=== PATIENT | male | born 1975 | race Two or more races ===

== ENCOUNTER 2024-08-04 07:13 | Inpatient (IN) | payer BC, SELFPAY ==
[2024-08-04] VITALS (12 sets, daily range): BP systolic 139–168; BP diastolic 83–115; PULSE 54–110; RESP 15–94; TEMP 35.9–37.2; O2SAT 94–99; BMI 36.0; BMI 34.4
--- NOTE | 2024-08-04 | XR_ITS ---
Examinations: MRI Brain without intravenous contrast. MRA brain without intravenous contrast. MRA carotids without intravenous contrast 3-D vascular reconstructions Date and time of exam: August 04, 2024 1313 hours INDICATIONS: Dizziness numbness in the legs lethargy today, history large hemorrhage in the right basal ganglia on CT brain scan February 28, 2022 Technique: Multiple axial and sagittal images of the brain have been obtained MRA brain carotid images without contrast obtained, including 3-D postprocessing, vascular maximum intensity projection images Findings: Sell[place] is not enlarged. The optic chiasm and infundibular stalk are not remarkable. Prepontine and interpeduncular cisterns are not enlarged. No localized enlargement of the medulla or tamiko. Fourth ventricle and cerebellar tonsils normal in position. Subacute hemorrhage is not seen. Fourth ventricle is midline. Mass in the cerebellopontine angle region is not evident. 7th and 8th nerve complexes exhibits symmetry. Globes are symmetrical with no retro-orbital mass. Increased white matter signal prominent, old infarct right middle cerebral artery distribution Diffusion-weighted images demonstrate multiple embolic type foci restricted diffusion, both occipital lobes, greater left occipital lobe Mass-effect upon the ventricular system is not identified. 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
--- NOTE | 2024-08-04 07:28 | EKG_ITS ---
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
--- NOTE | 2024-08-04 07:28 | PD.EDADULT ---
ED General RME/HPI General Chief complaint: Neuro Symptoms/Deficit Stated complaint: DIZZINESS, TINGLING ON LI[S, UNABLE TO SPEAK AT 06 Time Seen by Provider: 08/04/24 07:29 Arrival date/time: 08/04/24 07:13 RME / HPI RME / HPI narrative: DR. ARROYO MAIN ED EVALUATION: 48 year old male presents to the Emergency Department with complaints of dizziness and altered mental status. Per son, last well known time was this morning at 620 AM. Per son, patient was fine when he woke up at 620 AM, patient was getting ready for work, changed, and then went to the kitchen and got dizzy. When the patient started to get dizzy then patient was slower in responding. Per son, patient was dizzy a week ago after he had an ear infection and was prescribed antibiotics, does not know the name. PMHx: Hypertension. Brain hemorrhage with craniotomy in 01/2022, patient was in coma for a month and in rehab for 2 months but no residual deficits. Denies any blood thinners. Social Hx: No tobacco, alcohol, or substance use. Related Data Previous Rx's ?Medication ?Instructions ?Recorded ibuprofen 600 mg tablet 600 mg PO Q6HR PRN PAIN #40 tabs 10/01/14 lisinopril 10 mg tablet 10 mg PO QDAY #30 tabs 10/01/14 Allergies Allergy/AdvReac Type Severity Reaction Status Date / Time No Known Allergies Allergy Verified 08/04/24 07:15 Review of Systems Review of Systems Systems Reviewed: All systems reviewed, normal except as documented Past Medical History Past Medical History NEUROLOGIC: Positive Cerebrovascular Accident (HEMORRHAGIC STROKE) CARDIAC: Positive Cardiac Disorders ( clogged artey ) and Hypertension Social History SMOKING STATUS: Never smoker SUBSTANCE USE: does not use ALCOHOL: Never ED Exam Narrative Physical exam: GENERAL APPEARANCE: Alert but his gaze is fixed at a distance; he looks at me but does not answer questionnaire or follow any commands, no acute distress. HEENT: Right hemisphere old craniotomy scar. EOMI, clear conjunctiva, oropharynx clear. NECK: Supple without lymphadenopathy. No stiffness or restricted ROM. HEART: Normal rate and regular rhythm, normal S1/S1, no m/r/g LUNGS: CTAB, moving air well. No crackles or wheezes are heard. ABDOMEN: Soft, nontender, nondistended with good bowel sounds heard. BACK: No midline C/T/L spine pain or deformity, No CVAT, no obvious deformity. EXTREMITIES: Without cyanosis, clubbing or edema. MUSCULOSKELETAL: FROM of all major joints, no chest tenderness NEUROLOGICAL: Grossly nonfocal. Alert and oriented, moving all 4 extremities. CN not formally tested but appear grossly intact. Gait was normal, patient was able to get up just a little sluggish. Skin: Warm and dry without any rash. Course Quality Measures none Orders Category Date Time Status Admit to Inpatient Status Routine Admission 08/04/24 09:32 Active Patient Condition Routine Admission 08/04/24 09:31 Ordered Bedside Blood Glucose NOW Care 08/04/24 07:28 Active COVID-19 Screening Questionnaire NOW Care 08/04/24 09:01 Active Silk Trimmer NOW Care 08/04/24 07:28 Active Continuous Pulse Oximetry NOW Care 08/04/24 07:28 Completed Decision to Admit X1 Care 08/04/24 08:59 Completed EKG (ED ONLY) *Do not use* NOW Care 08/04/24 07:28 Completed Head of Bed Elevation NOW Care 08/04/24 09:43 Active In and Out Catheter NEEDED Care 08/04/24 07:28 Active Insert IV NOW Care 08/04/24 07:28 Active Miscellaneous Nursing Order NOW Care 08/04/24 09:46 Active NIH Stroke Scale now Care 08/04/24 07:28 Active NPO NOW Care 08/04/24 07:28 Active Neuro Check Q15MIN Care 08/04/24 07:28 Active Neuro Check Q4H Care 08/04/24 09:31 Active Notify provider NEEDED Care 08/04/24 09:31 Active Nurse Swallow Screen X1 Care 08/04/24 09:39 Active Nurse Swallow Screen x1 Care 08/04/24 07:28 Active Seizure precautions NEEDED Care 08/04/24 09:32 Active Sequential Compression Device QSHIFT Care 08/04/24 09:31 Active Consult to Neurology / Tele-Neurology Routine Cons 08/04/24 07:28 Active Consult to Neurology / Tele-Neurology Stat Cons 08/04/24 09:[address] angio stroke protocol Stat Exams 08/04/24 07:[address] stroke protocol Stat Exams 08/04/24 07:28 Completed EKG (ED Only) Stat Exams 08/04/24 07:28 Draft Basic Metabolic Panel AM DRAW Lab 08/05/24 05:00 Ordered Basic Metabolic Panel AM DRAW Lab 08/06/24 05:00 Ordered Basic Metabolic Panel AM DRAW Lab 08/07/24 05:00 Ordered CBC AM DRAW Lab 08/05/24 05:00 Ordered CBC AM DRAW Lab 08/06/24 05:00 Ordered CBC AM DRAW Lab 08/07/24 05:00 Ordered CBC Stat Lab 08/04/24 07:30 Completed Comprehensive Metabolic Panel Stat Lab 08/04/24 07:30 Completed Drug Screen,Urine Stat Lab 08/04/24 08:01 Completed Lipid Panel AM DRAW Lab 08/05/24 05:00 Ordered Magnesium AM DRAW Lab 08/05/24 05:00 Ordered Magnesium AM DRAW Lab 08/06/24 05:00 Ordered Magnesium AM DRAW Lab 08/07/24 05:00 Ordered Magnesium Stat Lab 08/04/24 07:30 Completed Partial Thromboplastin Time Stat Lab 08/04/24 07:30 Completed Phosphorous AM DRAW Lab 08/05/24 05:00 Ordered Phosphorous AM DRAW Lab 08/06/24 05:00 Ordered Phosphorous AM DRAW Lab 08/07/24 05:00 Ordered Prothrombin Time with INR Stat Lab 08/04/24 07:30 Completed Thyroid Stimulating Hormone AM DRAW Lab 08/05/24 05:00 Ordered Troponin I Stat Lab 08/04/24 07:30 Completed Troponin I Stat Lab 08/04/24 10:10 Completed Acetaminophen Tab [Tylenol Tab] Med 08/04/24 09:31 Active 650 mg PO Q6H PRN Ondansetron Inj [Zofran Inj] Med 08/04/24 07:28 Active 4 mg IVP Q4HR PRN Ringers Lactated 1000 ml [Lactated Ringers] 1,000 ml Med 08/04/24 09:40 Active IV 80 mls/hr levETIRAcetam INJ [Keppra Inj] Med 08/04/24 07:55 Discontinued 1,500 mg IVP X1 ONE Code Status Routine Oth 08/04/24 09:31 Ordered EEG Awake and Drowsy Routine RT 08/04/24 09:41 Ordered Oxygen Delivery NOW RT 08/04/24 07:28 Active Vital Signs Vital signs: Vital Signs Temperature 98.1 F 08/04/24 07:14 Pulse Rate 61 08/04/24 07:14 Respiratory Rate 16 08/04/24 07:14 Blood Pressure 142/103 H 08/04/24 07:14 Pulse Oximetry (%) 99 08/04/24 07:14 Oxygen Delivery Method Room Air 08/04/24 07:14 Discharge Plan Plan Patient Disposition: Admit Acute Care w/in Hospital Problem List Clinical Impression: Seizure, Cerebrovascular accident, Anxiety MDM Narrative [facility] hospital course: I, Lita Shahid am scribing for and in the presence of Dr. Arroyo. Clinical Information Provided by patient and family (son) Medical Records Reviewed [facility] Reviewed last visit dated 02/28/22, patient admitted for the following: Basal ganglia hemorrhage. At that time, the patient was transferred to [facility]. Meds/Rx Considered, not Ordered None Labs/Rad/Tests considered, not Ordered None Chronic Illness/Social Conditions Add or document further as needed: Hypertension. Brain hemorrhage with craniotomy in 2022, patient was in coma for a month and in rehab for 2 months but no residual deficits. Denies any blood thinners. EKG Interpretation EKG #1: Date/time of EK08/04/24 0756 hours EKG interpretation: sinus bradycardia, rate 59, normal intervals, normal axis, no acute ST-T wave changes. Lab Interpretation Labs: interpreted by me Imaging Radiology reports / interpretation(s): Procedure(s): CT stroke protocol Accession Number(s): [id number] cc: Ryan Arroyo MD; Shay Pettit MD~ Examination: CT brain head without contrast. 2-D sagittal coronal reconstructions Date and time of exam:August 04, 2024 0731 hours Comparison February 28, 2022 INDICATIONS: Stroke alert, onset focal neurologic deficit, unable to speak today, large hemorrhage in the right basal ganglia on CT brain scan February 28, 2022 CTDI: vol (mGy):54.9 DLP: (mGycm):1009 Technique: Multiple CT axial sections of the brain have been obtained, 5 mm slice thickness. Contrast has not been administered. 2-D sagittal, coronal reconstructions have been obtained Low dose protocols were performed. One or more of the following dose reduction techniques were used; automated exposure control, adjustment of the mA and/or KV according to patient size, use of iterative reconstruction technique. Findings: Large right craniotomy defect with ipsilateral ventricular dilatation and encephalomalacia in the right middle artery distribution No interval acute hemorrhage. No interval mass effect Fourth ventricle midline No cranial vault fracture IMPRESSION: Chronic changes as above No interval acute hemorrhage or mass effect Dictated By: Shay Pettit MD Procedure(s): CT angio stroke protocol Accession Number(s): [id number] cc: Ryan Arroyo MD; Shay Pettit MD~ Examination: CTA carotids with intravenous contrast CTA brain, head with intravenous contrast. 2-D sagittal, coronal reconstructions. 3-D reconstructions. Exam date and time: August 04, 2024, 0739 hours INDICATIONS: Stroke alert, unable to speak this week CTDI: vol (mGy) 47 DLP: (mGycm) 511.8 Technique: Multiple CTA axial brain, head carotid images post intravenous contrast injection 75 cc, Isovue-[id number]. 2-D sagittal, coronal reconstructions. 3-D reconstructions, 3-D post processing including vascular maximum intensity projection images. Low dose protocols were performed. One or more of the following dose reduction techniques were used; automated exposure control, adjustment of the mA and/or KV according to patient size, use of iterative reconstruction technique. Findings: No significant common carotid carotid bifurcation or internal carotid artery stenoses Dominant right vertebral artery with no critical vertebral artery stenoses 90% plus stenosis distal M1 segment right middle cerebral artery Middle cerebral artery trifurcation vessels do fill as well as anterior cerebral arteries Diffuse irregularity of the posterior cerebral artery branches IMPRESSION: No significant neck arterial stenoses 90% stenosis distal M1 segment right middle cerebral artery Dictated By: Shay Pettit MD Medication Administration(s) Medication Administration History Acetaminophen (Acetaminophen 325 Mg Tablet) 650 mg PO Q6H PRN PRN Reason: PAIN OR FEVER > 100.4 Stop: 09/03/24 09:30 Lactated Ringer's (Lactated Ringers) 1,000 mls @ 80 mls/hr IV .[id number] [facility] Stop: 09/03/24 09:39 Last Admin: 08/04/24 10:36 Dose: 80 mls/hr Documented By: BAILEY Ondansetron HCl (Ondansetron Inj 2 Mg/Ml Inj 2 Ml) 4 mg IVP Q4HR PRN PRN Reason: NAUSEA OR VOMITING Stop: 09/03/24 07:27 Discontinued Medications Levetiracetam (Levetiracetam Inj 100 Mg/Ml Vial 5ml) 1,500 mg IVP X1 ONE Stop: 08/04/24 07:56 Last Admin: 08/04/24 08:08 Dose: 1,500 mg Documented By: MARLINE Consultations/Discussions re: Management Consult #1: Date/time: 08/04/24 8:48 am Physician, specialty, service, details: Discussed test HPI, PMHx, lab, radiology results and/or management with resident working with the hospitalist. Will admit for further evaluation and management. Accepts patient for admission. Diagnosis Differential diagnosis: CVA, TIA, seizure, anxiety Most likely dx, and/or detailed dx discussion: Seizure CVA Anxiety Dispositon Disposition: Admit
[2024-08-04 07:53] LABS: Basophils % (Auto) 0 % (0-2.5); Eosinophils # (Auto) 0.2 Thou/mm3 (0.0-0.5); Eosinophils % (Auto) 2 % (0-10); Hematocrit 42.5 % (41.0-53.0); Hemoglobin 15.5 g/dL (13.5-16.0); Immature Granulocytes % (Auto) 1 % (0-0); Immature Granulocytes Auto 0.04 Thou/mm3 (0.00-0.00); Lymphocytes # (Auto) 1.7 Thou/mm3 (1.0-4.8); Lymphocytes % (Auto) 19 % (10-50); Mean Corpuscular HGB Conc 36.5 g/dl (31.0-37.0); Mean Corpuscular Hemoglobin 30.3 pg (25.0-35.0); Mean Corpuscular Volume 83 fL (80-100); Monocytes # (Auto) 0.6 Thou/mm3 (0.0-0.8); Monocytes % (Auto) 7 % (0-12); Neutrophils # (Auto) 6.3 Thou/mm3 (1.8-7.7); Neutrophils % (Auto) 71 % (37-80); Nucleated Red Blood Cell % 0 /100 WBC (0); Platelet Count 196 Thou/mm3 (140-440); RDW Standard Deviation 39.1 fL (35.1-43.9); Red Blood Count 5.11 Miln/mm3 (4.50-5.90); White Blood Count 8.8 Thou/mm3 (3.8-10.6)
--- NOTE | 2024-08-04 07:57 | ESCONSULT_ITS ---
Tele Neuro Consultation Consultation Date 08/04/24 Consultation Narrative [facility] Tele[facility] Patient Name:???Adal Cesar Date of :???1975 Date of Service:???08/04/2024 07:20:46 Diagnosis:?G40.89 - Other seizures Impression: ?Patient is a 48-year-old male with a past medical history of right basal ganglia hemorrhage, craniotomy, hypertension is currently presenting for altered mental status. ? ?Patient presents with an episode of acute confusion, not following commands. Currently he seems to be improving. 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 ?As per brother had prior episodes like this where he would suddenly feel dizzy and then he would recover after little bit of time. Currently he appears more confused. ? ?On exam patient is awake, alert, attends to both sides of the room. He can answer questions and follow commands reasonably well. He does not remember the month or his age. He can tell me his name. Mentions that he is globally weak. He is moving all his extremities with equal strength. Extraocular motion is intact. Language function is seemingly intact he can name common objects. ? ?Head CT shows considerable right temporal lobe encephalomalacia. ?Overall suspicious for a focal seizure involving the right temporal lobe. ?- Prior history of intracranial hemorrhage precludes IV thrombolytic treatment. ?- load with 60 mg/kg up to 4 g of IV Keppra. ?- Obtain EEG. ?- If patient does not return to baseline, consider a broad encephalopathy workup, obtain MRI brain with and without contrast. Our recommendations are outlined below. Recommendations: ? Stroke/Telemetry Floor ? Neuro Checks (Q2) ? Bedside Swallow Eval ? DVT Prophylaxis ? IV Fluids, Normal Saline ? Head of Bed 30 Degrees ? Euglycemia and Avoid Hyperthermia (PRN Acetaminophen) ?- Prior history of intracranial hemorrhage precludes IV thrombolytic treatment. ?- load with 60 mg/kg up to 4 g of IV Keppra. ?- Obtain EEG. ?- If patient does not return to baseline, consider a broad encephalopathy workup, obtain MRI brain with and without contrast. Advanced Imaging:Advanced imaging has been ordered. Results pending. Metrics: Last Known Well: 08/04/2024 06:20:00 Dispatch Time: 08/04/2024 07:20:46 Arrival Time: 08/04/2024 07:20:52 Initial Response Time: 08/04/2024 07:24:37Symptoms: Confused. Initial patient interaction: 08/04/2024 07:30:00 NIHSS Assessment Completed: 08/04/2024 07:41:48Patient is not a candidate for T hrombolytic. Thrombolytic Medical Decision: 08/04/2024 07:44:17Patient was not deemed candidate for Thrombolytic because of following reasons: History of previous intracranial hemorrhage, intracranial neoplasm . other diagnosis suspected R sided craniotomy changes, R BG encephalomalacia involving the left temporal lobe suspicious for a focal seizure. CT Head: I personally reviewed all the CT images that were available to me and it showed: R sided craniotomy changes, R BG encephalomalacia involving the left temporal lobe Primary Provider Notified of Diagnostic Impression and Management Plan on: 08/04/2024 07:54:10 History of Present Illness:Patient is a 48 year old Male. Patient was brought by private transportation with symptoms of Confused. Patient is a 48-year-old male with a past medical history of right basal ganglia hemorrhage, craniotomy, hypertension is currently presenting for altered mental status. Most of the history is obtained from brother who is at bedside. Mentions that patient woke up normally at around 6:20 AM this morning. He was at his baseline. He was talking. They were getting ready for work. And at that time he noticed that the patient was feeling dizzy. He was holding onto something with his right arm and standing. Later he went and laid down and took some rest. Brother mentions that this has happened in the past where he suddenly feels dizzy and he has to sit down. However he recovers quickly. Today he seemed to be not coming back to his baseline. He appeared confused. Patient himself cannot remember his age. He can tell me his name. He does not remember the month. Mentions that his whole body feels weak. ? Past Medical History: ?Hypertension ?There is no history of Diabetes Mellitus Other PMH:? Hemorrhagic stroke in 2022 Medications: No Anticoagulant use? No Antiplatelet use Reviewed EMR for current medications Allergies:? Description:?As per chart Social History: Smoking: No Family History: There is no family history of premature cerebrovascular disease pertinent to this consultation ROS : 14 Points Review of Systems was performed and was negative except mentioned in HPI. Past Surgical History: There Is No Surgical History Contributory To Today?s Visit ? Examination: BP(175/100),?Pulse(59),?Blood Glucose(102) 1A: Level of Consciousness - Alert; keenly responsive?+ 0 1B: Ask Month and Age - Could Not Answer Either Question Correctly?+ 2 1C: Blink Eyes & Squeeze Hands - Performs Both Tasks?+ 0 2: Test Horizontal Extraocular Movements - Normal?+ 0 3: Test Visual Mike - No Visual Loss?+ 0 4: Test Facial Palsy (Use Grimace if Obtunded) - Minor paralysis (flat nasolabial fold, smile asymmetry)?+ 1 5A: Test Left Arm Motor Drift - No Drift for 10 Seconds?+ 0 5B: Test Right Arm Motor Drift - No Drift for 10 Seconds?+ 0 6A: Test Left Leg Motor Drift - No Drift for 5 Seconds?+ 0 6B: Test Right Leg Motor Drift - No Drift for 5 Seconds?+ 0 7: Test Limb Ataxia (FNF/Heel-Adrian) - No Ataxia?+ 0 8: Test Sensation - Normal; No sensory loss?+ 0 9: Test Language/Aphasia - Normal; No aphasia?+ 0 10: Test Dysarthria - Normal?+ 0 11: Test Extinction/Inattention - No abnormality?+ 0 NIHSS Score:?3 Pre-Morbid Modified Anthony Scale:1 Points = No significant disability despite symptoms; able to carry out all usual duties and activities Spoke with :?ED Provider This consult was conducted in real time using interactive audio and video technology. Patient was informed of the technology being used for this visit and agreed to proceed. Patient located in hospital and provider located at home/office setting. Patient is being evaluated for possible acute neurologic impairment and high probability of imminent or life-threatening deterioration. I spent total of 45 minutes providing care to this patient, including time for face to face visit via telemedicine, review of medical records, imaging studies and discussion of findings with providers, the patient and/or family. Dr Yossi Shah [facility] For Inpatient follow-up with [facility] physician please call [facility] at . As we are not an outpatient service for any post hospital discharge needs please contact the hospital for assistance. If you have any questions for the [facility] physicians or need to reconsult for clinical or diagnostic changes please contact us via [facility] at . ?
[2024-08-04] MEDS: levETIRAcetam INJ 100 MG/ML VIAL 5ML 1500 MG IVP (08:08)
[2024-08-04 08:09] LABS: Alanine Aminotransferase 31 U/L (10-49); Albumin, Serum 4.5 gm/dL (3.5-5.0); Alkaline Phosphatase 62 U/L (46-116); Anion Gap 9 (7-16); Aspartate Amino Transferase 18 U/L (0-34); BUN/Creatinine Ratio 12 Ratio (12-20); Bilirubin,Total 0.7 mg/dL (0.3-1.2); Blood Urea Nitrogen 13 mg/dL (9-23); Calcium 8.7 mg/dL (8.3-10.6); Calcium (Corrected) 8.7 mg/dL (8.5-10.1); Carbon Dioxide 27.7 mMol/L (20.0-31.0); Chloride 106 mMol/L (98-107); Creatinine (Component) 1.1 mg/dL (0.6-1.3); Estimated Creatinine Clearance 95.6 mL/min (>60); Globulin 2.3 gm/dL (2.3-3.5); Glucose 103 mg/dL (74-106); Osmolality,Calculated 285 (275-295); Potassium 3.8 mMol/L (3.4-5.1); Sodium 143 mMol/L (136-145); Total Protein 6.8 gm/dL (5.7-8.2); eGFR > 60 See Note
[2024-08-04 08:55] LABS: Amphetamine/Methamp Scrn,U Negative (Negative); Barbiturate Screen,Urine Negative (Negative); Benzodiazepines Screen,Urine Negative (Negative); Benzoylecgonine Screen, Ur Negative (Negative); Fentanyl Screen,Urine Negative (Negative); Opiate Screen,Urine Negative (Negative); THC Screen,Urine Negative (Negative)
[2024-08-04 09:32] LABS: Partial Thromboplastin Time 29.8 Seconds (22.0-36.0); Prothrombin Time 10.8 Seconds (9.0-12.2)
--- NOTE | 2024-08-04 09:52 | ESHP_ITS ---
<Statement entered by Yajaira Sue MD - 08/11/24 13:34> I reviewed above note and agree with findings and plans. I have also personally examined the patient with medicine team and went over assessment and plan with medical team including legal internship and resident physician. 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 Son at bedside to help provide additional information-and states that when getting ready for work this morning, patient started to feel dizzy with associated numbness on his lips and slower to respond. No associated weakness, numbness, facial droop, or slurred speech. Of note, patient experienced an episode of dizziness a week ago but apparently resolved. Upon evaluation at bedside, patient is alert and oriented to self and place only, not to birthdate or her year. Appears to have a flat affect and responds in one-word sentences to son that son attributes to patient feeling dizzy. Upon arrival to ED, stroke alert was called and head CT showed considerable right temporal lobe encephalomalacia and primary suspicion for focal seizure of the right temporal lobe. Given history of intracranial bleed, no IV thrombolytic treatment given and instead given loading dose of Keppra. Teleneuro recommended to admit for further workup/management of possible seizures and encephalopathy. Otherwise, in ED vital signs stable though slightly bradycardic at 55 bpm, CBC unremarkable, CMP unremarkable. Troponin noted to be elevated at 0.15 that downtrended to 0.147. U tox negative. CT as mentioned above, CTA head/neck showed 90% stenosis of distal M1 segment of the right MCA. EKG showed sinus bradycardia with heart rate 59 bpm but otherwise no ST changes, T wave abnormalities noted. Given loading dose keppra in ED. 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 and hypertension Medications: pending med rec SHx: previously used to binge drink but stopped in 2021 after stroke, denies smoking or illicit drug use PSHx: [facility] many years ago with no stents placed Review of Systems Review of Systems Systems Reviewed: All systems reviewed, normal except as documented Exam Vital Signs Temp Pulse Resp BP Pulse Ox O2 Del Method 97.9 F 56 L 15 143/86 H 96 Room Air 08/04/24 09:11 08/04/24 09:11 08/04/24 09:11 08/04/24 09:11 08/04/24 09:11 08/04/24 09:11 Narrative Exam General: alert, oriented to self and place but not year or birthdate, flat affect and speaks in 1 word sentences HEENT: NC/AT, mucous membranes moist, bilateral sclera anicteric Cardiovascular: regular rate and rhythm, S1/S2 present, no murmurs appreciated Pulmonary: clear to auscultation bilaterally, no rales/rhonchi/wheezes Abdominal: soft, non-tender, non-distended, no rebound/guarding, normal bowel sounds present Musculoskeletal: normal ROM, no peripheral edema Skin: warm and dry, intact, no rashes Neuro: no focal deficits, strength equal and intact in upper and lower extremities bilaterally Results: Labs 08/04/24 07:30 08/04/24 07:30 Labs: Short CBC 08/04/24 Range/Units 07:30 WBC 8.8 (3.8-10.6) Thou/mm3 Hgb 15.5 (13.5-16.0) g/dL Hct 42.5 (41.0-53.0) % Plt Count 196 (140-440) Thou/mm3 BMP 08/04/24 07:30 Sodium 143 Potassium 3.8 Chloride 106 Carbon Dioxide 27.7 BUN 13 Creatinine 1.1 Glucose 103 Calcium 8.7 Cardiac Enzymes 08/04/24 Range/Units 07:30 Troponin I 0.150 H* (0.0-0.045) ng/mL Liver Function 08/04/24 Range/Units 07:30 Total Bilirubin 0.7 (0.3-1.2) mg/dL AST 18 (0-34) U/L ALT 31 (10-49) U/L Alkaline Phosphatase 62 (46-116) U/L Albumin 4.5 (3.5-5.0) gm/dL Quality Measures Quality Measures none Medications Home Medications and Allergies Allergies Allergy/AdvReac Type Severity Reaction Status Date / Time No Known Allergies Allergy Verified 08/04/24 07:15 Visit Medications Acetaminophen (Acetaminophen 325 Mg Tablet) 650 mg PO Q6H PRN PRN Reason: PAIN OR FEVER > 100.4 Stop: 07/05/25 09:30 Lactated Ringer's (Lactated Ringers) 1,000 mls @ 80 mls/hr IV .[id number] [place] Stop: 09/03/24 09:39 Ondansetron HCl (Ondansetron Inj 2 Mg/Ml Inj 2 Ml) 4 mg IVP Q4HR PRN PRN Reason: NAUSEA OR VOMITING Stop: 09/03/24 07:27 Discontinued Medications Levetiracetam (Levetiracetam Inj 100 Mg/Ml Vial 5ml) 1,500 mg IVP X1 ONE Stop: 08/04/24 07:56 Last Admin: 08/04/24 08:08 Dose: 1,500 mg Assessment & Plan Plan Adal Cesar is a 48-year-old male with a past medical history of 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 #Acute encephalopathy secondary to possible seizure #? New onset seizure #History of right ganglia hemorrhagic stroke status post craniotomy 2021 #Dizziness Presents with dizziness and numbness of lips but without any other focal neurological deficits. Son denies any tonic-clonic movements, lip biting, urinary incontinence, or postictal confusion. U tox negative, CHEM panel unremarkable (Na, osm, BUN, Cr), LFTs unremarkable (low suspicion of hepatic encephalopathy), denies any symptoms that may point towards infectious etiology. Given CT head findings, most likely new onset seizure of right temporal lobe given previous history of hemorrhagic stroke in 2021. ? In-house neurology consulted, appreciate recommendations ? Received loading dose Keppra in ED ? Nurse swallow screen ? Seizure precautions, head of bed elevation > 30 degrees, neuro checks q4h ? Follow-up MRI and echo ? Zofran for nausea ? Follow-up lipid panel and TSH ? Follow-up EEG #History of hypertension ? Pending med rec Hospital management: Disposition: pending MRI and further neuro recommendations Fluids: LR at 80 cc/hr Diet: NPO, pending swallow screen Lines: PIV DVT prophylaxis: SCDs given history of hemorrhagic stroke CODE STATUS: full code ----- Plan discussed with attending physician Dr. Linette Moore MD PGY-1 Internal Medicine
[2024-08-04] MEDS: RINGERS LACTATED 1000 ML 1,000 ML 80 ML IV (10:36)
[2024-08-04 10:41] LABS: Troponin I 0.147 ng/mL (0.0-0.045)
[2024-08-04] MEDS: ONDANSETRON INJ 2 MG/ML INJ 2 ML 4 MG IVP (12:50)
--- NOTE | 2024-08-04 13:00 | PC.NURSE ---
ORTHOSTATIC VS PERFORMED AT THIS TIME; ABLE TO TAKE SUPINE & SITTING ORTHOSTATICS. PT UNABLE TO STAND AT THIS TIME. UNABLE TO PERFORM ORTHOSTATIC STANDING AT THIS TIME.
--- NOTE | 2024-08-04 15:14 | PC.NURSE ---
REPORT GIVEN TO AFSHAN MUNOZ. EEG CURRENTLY BEING PERFORMED. WILL TRANSPORT PATIENT TO ADMITTING UPON COMPLETION OF EEG.
--- NOTE | 2024-08-04 15:59 | XR_ITS ---
Examination: CT brain head without contrast. 2-D sagittal coronal reconstructions Date and time of exam:August 04, 2024 at 0409 hours Comparison August 04, 2024 0731 hours , Multiple acute embolic type infarcts in the occipital lobes on brain MRI August 04, 2024 INDICATIONS: Change in mental status today CTDI: vol (mGy):57.5 DLP: (mGycm):1228 Technique: Multiple CT axial sections of the brain have been obtained, 5 mm slice thickness. Contrast has not been administered. 2-D sagittal, coronal reconstructions have been obtained Low dose protocols were performed. One or more of the following dose reduction techniques were used; automated exposure control, adjustment of the mA and/or KV according to patient size, use of iterative reconstruction technique. Findings: Large right craniotomy defect with encephalomalacia in the temporal frontal and right parietal lobe Ipsilateral ventricular dilatation No interval acute hemorrhage or mass effect Please see the brain MRI report August 04, 2024 IMPRESSION: No interval acute hemorrhage or mass effect Consider repeating the brain MRI, stroke protocol to assess for progression of acute infarcts
--- NOTE | 2024-08-04 16:11 | EVENTNT_ITS ---
<Statement entered by Yajaira Sue MD - 08/11/24 13:36> I reviewed above note and agree with findings and plans. I have also personally examined the patient with medicine team and went over assessment and plan with medical team including accounting intern and resident physician. Documentation for date of: 08/04/24 Event Note Event Note: Rapid response called at approximately 4 PM for change in mentation. Per report, patient had become less responsive on the way up from the ED to telemetry. In ED, patient was noted to have a glazed look but was answering questions appropriately with one-word answers and following commands. Upon evaluation during rapid, patient was responding to voice and following commands but less responsive compared to prior. Stroke alert was called and patient will go to state CT. Spoke to in-house neurology, recommended no benzos at this time as patient admitted for possible new onset seizure and follow-up CT results and no DAPT given history of intracranial bleed. ----- Plan discussed with attending physician Dr. Linette Moore MD PGY-1 Internal Medicine
--- NOTE | 2024-08-04 17:15 | ECHO_ITS ---
Transthoracic Echo Report Ht (in): 67 Wt (lb): 220 Exam Location: Echo Lab Status: Inpatient Educational Diagnostician: Mignon Melendez Indications: Procedure Performed: BP: 142 / 112 HR: 68 Technical Quality: Technically difficult study MEASUREMENTS (Male / Female) Normal Values 2D ECHO LV Diastolic Diameter PLAX 3.9 cm 4.2 - 5.9 / 3.9 - 5.3 cm LV Systolic Diameter PLAX 2.5 cm IVS Diastolic Thickness 1.3 cm 0.6 - 1.0 / 0.6 - 0.9 cm LVPW Diastolic Thickness 1.1 cm 0.6 - 1.0 / 0.6 - 0.9 cm LV Relative Wall Thickness 0.6 LVOT Diameter 1.6 cm Aortic Root Diameter 2.7 cm LA Systolic Diameter LX 2.9 cm 3.0 - 4.0 / 2.7 - 3.8 cm LA Volume Index 19.9 cm?/m? 16 - 28 cm?/m? M-MODE Aortic Root Diameter MM 2.4 cm LA Systolic Diameter MM 3.4 cm LA Ao Ratio MM 1.4 AV Cusp Separation MM 1.8 cm DOPPLER AV Peak Velocity 156.0 cm/s AV Peak Gradient 9.7 mmHg AV Mean Gradient 5.0 mmHg AV Velocity Time Integral 34.3 cm LVOT Peak Velocity 139.0 cm/s LVOT Peak Gradient 7.7 mmHg LVOT Velocity Time Integral 32.5 cm LVOT Cardiac Index 2010.5 cm?/min?m? AV Area Cont Eq vti 1.9 cm? AV Area Cont Eq pk 1.8 cm? MV Area PHT 3.1 cm? Mitral E Point Velocity 65.0 cm/s Mitral A Point Velocity 90.2 cm/s Mitral E to A Ratio 0.7 LV E' Lateral Velocity 10.6 cm/s Mitral E to LV E' Lateral Ratio 6.1 LV E' Septal Velocity 7.6 cm/s Mitral E to LV E' Septal Ratio 8.5 PV Peak Velocity 147.0 cm/s PV Peak Gradient 8.6 mmHg FINDINGS Left Ventricle Normal left ventricular size and systolic function with no obvious regional wall motion abnormalities. Mild LVH. The left ventricular ejection fraction is normal, estimated at 60-65%. There is grade I diastolic dysfunction of the left ventricle (impaired relaxation pattern). Right Ventricle The right ventricle is normal in size and systolic function. Left Atrium The left atrium is normal by two-dimensional, color flow and Doppler imaging with no structural abnormalities, no thrombus formation present. Right Atrium The right atrium is normal by two-dimensional imaging, color flow and Doppler imaging with no structural abnormalities, no thrombus formation present. Atrial Septum The interatrial septum appears normal with no evidence of a shunt. Aorta The aorta is normal by two-dimensional, color flow and Doppler interrogation. Mitral Valve The mitral valve is normal by two-dimensional, color flow and Doppler interrogation. There is no significant mitral valve regurgitation, stenosis or prolapse. Aortic Valve The aortic valve is trileaflet and normal by two-dimensional, color flow and Doppler interrogation. There is no significant aortic valve regurgitation. Tricuspid Valve The tricuspid valve is normal by two-dimensional, color flow and Doppler interrogation. There is no significant tricuspid valve regurgitation. Pulmonic Valve The pulmonic valve is not well visualized. There is no significant pulmonic valve regurgitation. Vessels The pulmonary artery appears normal. The inferior vena cava pulmonary and hepatic veins appear normal. Pericardium The pericardium is normal by two-dimensional imaging. There is no significant pericardial effusion. CONCLUSIONS Indication: TIA/CVA-rule out embolic source with bubble study Negative bubble study for any PFO or ASD. Consider SANAZ if high index of clinical suspicion. Normal LV size and function. Mild to moderate LVH. Estimated EF 60-65%. Grade I diastolic dysfunction. Normal RV size and function. Normal RVSP. Trace TR and MR. No pericardial effusion. Lloyd Deal (Electronically Signed) Final Date: 05 August 2024 18:00
[2024-08-04] MEDS: LABETALOL INJ 5 MG/ML VIAL 20 ML 10 MG IVP (19:51)
[2024-08-04] MEDS: ASPIRIN 300 MG SUPP PR (21:54)
--- NOTE | 2024-08-04 23:12 | PD.NEUROCONS ---
History of Present Illness Data of Consult Requesting Physician: Yajaira Sue MD Primary Care Provider: Anatoly Mcdonald Consult Narrative cc:: cc: Yajaira Sue MD Meds Home Medications and Allergies Home Medications ?Medication ?Instructions ?Recorded ?Confirmed ?Type hydralazine 50 mg tablet mg 08/04/24 History losartan 50 mg tablet mg 08/04/24 History meclizine 25 mg tablet mg 08/04/24 History Allergies Allergy/AdvReac Type Severity Reaction Status Date / Time No Known Allergies Allergy Verified 08/04/24 07:15 Exam - Neurology Vital Signs Temp Pulse Resp BP Pulse Ox O2 Del Method 97.7 F 110 H 18 168/88 H 98 Room Air 08/04/24 20:00 08/04/24 20:00 08/04/24 20:00 08/04/24 20:00 08/04/24 20:00 08/04/24 20:00 Results Labs 08/04/24 07:30 08/04/24 07:30 Labs: Short CBC 08/04/24 Range/Units 07:30 WBC 8.8 (3.8-10.6) Thou/mm3 Hgb 15.5 (13.5-16.0) g/dL Hct 42.5 (41.0-53.0) % Plt Count 196 (140-440) Thou/mm3 BMP 08/04/24 07:30 Sodium 143 Potassium 3.8 Chloride 106 Carbon Dioxide 27.7 BUN 13 Creatinine 1.1 Glucose 103 Calcium 8.7 Cardiac Enzymes 08/04/24 08/04/24 Range/Units 07:30 10:10 Troponin I 0.150 H* 0.147 H* (0.0-0.045) ng/mL Liver Function 08/04/24 Range/Units 07:30 Total Bilirubin 0.7 (0.3-1.2) mg/dL AST 18 (0-34) U/L ALT 31 (10-49) U/L Alkaline Phosphatase 62 (46-116) U/L Albumin 4.5 (3.5-5.0) gm/dL
[2024-08-05] VITALS: BP 163/81; PULSE 82; PULSE 85; RESP 23; TEMP 36.8; O2SAT 95
--- NOTE | 2024-08-05 | XR_ITS ---
Examinations: MRI Brain without intravenous contrast. MRA brain without intravenous contrast. 3-D vascular reconstructions Date and time of exam: August 05, 2024 1026 hours INDICATIONS: New onset weakness altered mental status today, stroke alert Technique: Multiple axial and sagittal images of the brain have been obtained MRA brain carotid images without contrast obtained, including 3-D postprocessing, vascular maximum intensity projection images Findings: [place] is not enlarged. The optic chiasm and infundibular stalk are not remarkable. Prepontine and interpeduncular cisterns are not enlarged. No localized enlargement of the medulla or tamiko. Fourth ventricle and cerebellar tonsils normal in position. Subacute hemorrhage is not seen. Fourth ventricle is midline. Mass in the cerebellopontine angle region is not evident. 7th and 8th nerve complexes exhibits symmetry. Globes are symmetrical with no retro-orbital mass. Increased white matter signal prominent Diffusion-weighted images demonstrate multiple foci restricted diffusion in the brainstem, occipital lobes and bilateral basal ganglia Mass-effect upon the ventricular system is not identified. MRA brain images do not demonstrate basilar artery posterior cerebral artery filling No definite occlusions of M1 segments middle cerebral arteries middle cerebral artery trifurcation vessels or anterior cerebral arteries Impression: Multiple embolic type acute infarcts in the brainstem, pontine level, occipital lobes, and bilateral basal ganglia MRA images do not demonstrate basilar artery or posterior cerebral artery filling
[2024-08-05] MEDS: RINGERS LACTATED 1000 ML 1,000 ML 80 ML IV (01:56)
[2024-08-05 04:00] VITALS: BP 153/95; PULSE 80; PULSE 85; RESP 20; TEMP 36.8; O2SAT 96
[2024-08-05 05:40] VITALS: BMI 34.4
[2024-08-05 05:41] LABS: Basophils % (Auto) 0 % (0-2.5); Eosinophils # (Auto) 0.1 Thou/mm3 (0.0-0.5); Eosinophils % (Auto) 1 % (0-10); Hematocrit 42.9 % (41.0-53.0); Hemoglobin 14.8 g/dL (13.5-16.0); Immature Granulocytes % (Auto) 0 % (0-0); Immature Granulocytes Auto 0.02 Thou/mm3 (0.00-0.00); Lymphocytes # (Auto) 1.3 Thou/mm3 (1.0-4.8); Lymphocytes % (Auto) 13 % (10-50); Mean Corpuscular HGB Conc 34.5 g/dl (31.0-37.0); Mean Corpuscular Hemoglobin 30.2 pg (25.0-35.0); Mean Corpuscular Volume 88 fL (80-100); Monocytes # (Auto) 0.7 Thou/mm3 (0.0-0.8); Monocytes % (Auto) 7 % (0-12); Neutrophils # (Auto) 7.4 Thou/mm3 (1.8-7.7); Neutrophils % (Auto) 78 % (37-80); Nucleated Red Blood Cell % 0 /100 WBC (0); Platelet Count 196 Thou/mm3 (140-440); RDW Standard Deviation 41.1 fL (35.1-43.9); White Blood Count 9.5 Thou/mm3 (3.8-10.6)
[2024-08-05 06:06] LABS: Anion Gap 10 (7-16); BUN/Creatinine Ratio 12 Ratio (12-20); Blood Urea Nitrogen 13 mg/dL (9-23); Calcium 8.9 mg/dL (8.3-10.6); Carbon Dioxide 28.9 mMol/L (20.0-31.0); Cardiac Risk Estimate 5.4 RATIO (4.0-6.7); Chloride 106 mMol/L (98-107); Cholesterol 227 mg/dL (132-200); Creatinine (Component) 1.1 mg/dL (0.6-1.3); Estimated Creatinine Clearance 93.4 mL/min (>60); Glucose 100 mg/dL (74-106); HDL Cholesterol 42 mg/dL (40-60); LDL Cholesterol,Calculated 155 mg/dL (0-130); Magnesium 1.8 mg/dL (1.6-2.6); Osmolality,Calculated 288 (275-295); Phosphorous 2.5 mg/dL (2.4-5.1); Potassium 3.8 mMol/L (3.4-5.1); Sodium 145 mMol/L (136-145); Thyroid Stimulating Hormone 0.95 uIU/mL (0.55-4.78); Triglycerides 150 mg/dL (30-150); eGFR > 60 See Note
--- NOTE | 2024-08-05 07:01 | PD.NEUROPROG ---
Documentation for date of: 08/04/24 Subjective Subjective Interval history: Patient was seen in telemetry today with his family at the bedside. His mental status is not back to baseline according to the family. No witnessed tonic-clonic convulsions reported. He is very slow in responding. Exam - Neurology Vital Signs Temp Pulse Resp BP Pulse Ox O2 Del Method 98.2 F 85 20 153/95 H 96 Room Air 08/05/24 04:00 08/05/24 04:00 08/05/24 04:00 08/05/24 04:00 08/05/24 04:00 08/05/24 04:00 Narrative Exam GENERAL APPEARANCE: Well-developed, obese built male in no acute distress. HEENT: Normocephalic, atraumatic, extraocular movements intact. Pupils: Equal reacting to light and accommodation NECK: Supple, no JVD or bruits. CARDIOVASULAR: Heart: S1, S2 heard, regular without S3-S4 or murmur no rubs or gallops. LUNGS/CHEST: Clear to auscultation bilaterally. No rails, rhonchi, or wheezing. Normal inspection. ABDOMEN: Soft, nontender, with normal bowel sounds. No pulsatile masses. No rebound, rigidity, or guarding. Normal inspection and palpation. EXTREMITIES: Normal inspection and palpation. No edema, clubbing or cyanosis. SKIN: Warm and dry without rashes. Normal inspection. MUSCULOSKELETAL: No cervical, thoracic, lumbar or midline bony tenderness. Normal inspection. NEURO: Alert, awake and oriented x3. Cranial nerves: II through XII grossly intact. Speech and language: Dysarthric/hypophonic. Motor system: Tone and bulk: Normal: Strength: 5 out of 5 in all 4 extremities; No pronator drift noted. Deep tendon reflexes: 2+ bilaterally symmetrical. Plantar reflex: Downgoing bilaterally. Sensory system: Intact to all modalities of sensation bilaterally. Coordination: Intact to [id number] and hgro-huqm-ghse test bilaterally. No ataxia, no dysmetria, or dysdiadochokinesia noted. No intention tremors noted. Gait: Not tested. No signs of meningeal irritation noted. PSYCHIATRIC: Flat affect Objective Labs 08/05/24 04:56 08/05/24 04:56 Labs: Laboratory Results - last 24 hr 08/04/24 08/04/24 08/04/24 07:30 08:01 10:10 WBC 8.8 RBC 5.11 Hgb 15.5 Hct 42.5 MCV 83 MCH 30.3 MCHC 36.5 RDW Std Deviation 39.1 Plt Count 196 Neut % (Auto) 71 Lymph % (Auto) 19 [place] % (Auto) 7 Eos % (Auto) 2 Baso % (Auto) 0 Neut # (Auto) 6.3 Lymph # (Auto) 1.7 [place] # (Auto) 0.6 Eos # (Auto) 0.2 Baso # (Auto) 0.0 Immature Gran # (Auto) 0.04 H Absolute Nucleated RBC 0.00 Immature Gran % 1 H Nucleated RBC % 0 PT 10.8 INR 1.0 APTT 29.8 Sodium 143 Potassium 3.8 Chloride 106 Carbon Dioxide 27.7 Anion Gap 9 BUN 13 Creatinine 1.1 Estim Creat Clear Calc 95.6 eGFR > 60 BUN/Creatinine Ratio 12 Glucose 103 Calculated Osmolality 285 Calcium 8.7 Corrected Calcium 8.7 Phosphorus Magnesium 2.0 Total Bilirubin 0.7 AST 18 ALT 31 Alkaline Phosphatase 62 Troponin I 0.150 H* 0.147 H* Total Protein 6.8 Albumin 4.5 Globulin 2.3 Albumin/Globulin Ratio 2.0 Triglycerides Cholesterol LDL Cholesterol, Calc HDL Cholesterol Cholesterol/HDL Ratio TSH Urine Opiates Screen Negative Urine Fentanyl Screen Negative Ur Barbiturates Screen Negative U Amphetamin/Meth Scrn Negative U Benzodiazepines Scrn Negative U Cocaine Metab Screen Negative U Marijuana (THC) Screen Negative 08/05/24 04:56 WBC 9.5 RBC 4.90 Hgb 14.8 Hct 42.9 MCV 88 MCH 30.2 MCHC 34.5 RDW Std Deviation 41.1 Plt Count 196 Neut % (Auto) 78 Lymph % (Auto) 13 [place] % (Auto) 7 Eos % (Auto) 1 Baso % (Auto) 0 Neut # (Auto) 7.4 Lymph # (Auto) 1.3 [place] # (Auto) 0.7 Eos # (Auto) 0.1 Baso # (Auto) 0.0 Immature Gran # (Auto) 0.02 H Absolute Nucleated RBC 0.00 Immature Gran % 0 Nucleated RBC % 0 PT INR APTT Sodium 145 Potassium 3.8 Chloride 106 Carbon Dioxide 28.9 Anion Gap 10 BUN 13 Creatinine 1.1 Estim Creat Clear Calc 93.4 eGFR > 60 BUN/Creatinine Ratio 12 Glucose 100 Calculated Osmolality 288 Calcium 8.9 Corrected Calcium Phosphorus 2.5 Magnesium 1.8 Total Bilirubin AST ALT Alkaline Phosphatase Troponin I Total Protein Albumin Globulin Albumin/Globulin Ratio Triglycerides 150 Cholesterol 227 H LDL Cholesterol, Calc 155 H HDL Cholesterol 42 Cholesterol/HDL Ratio 5.4 TSH 0.95 Urine Opiates Screen Urine Fentanyl Screen Ur Barbiturates Screen U Amphetamin/Meth Scrn U Benzodiazepines Scrn U Cocaine Metab Screen U Marijuana (THC) Screen Assessment & Plan Assessment and plan (1) Acute CVA (cerebrovascular accident): Status: Acute Assessment and plan: Even though he had intracerebral hemorrhage in 2021 affecting the right cerebral hemisphere, he did not have any residual neurological deficit. As the MRI brain showed acute infarction involving the left occipital area, will start him on aspirin for secondary prevention with close monitoring for any bleeding. Continue with aggressive blood pressure management along with statin. Will get physical therapy evaluation (2) Hypertension: Status: Acute Assessment and plan: Needs aggressive blood pressure management (3) Seizure: Status: Acute Assessment and plan: No witnessed focal or generalized tonic-clonic convulsions. Will continue with Keppra 500 mg twice a day as the EEG showed right cerebral hemispherical spikes involving frontal central and temporal areas consistent with his previous intracerebral hemorrhage. No driving advised.
[2024-08-05 07:21] VITALS: BP 182/104; PULSE 82
[2024-08-05] MEDS: LABETALOL INJ 5 MG/ML VIAL 20 ML 10 MG IVP (07:21)
[2024-08-05 08:00] VITALS: BP 182/104; PULSE 71; PULSE 85; RESP 18; TEMP 36.2; O2SAT 93
--- NOTE | 2024-08-05 08:20 | CHAP ---
Responded to Rapid Response (08:20). Patient had already been taken from room. Apparently no family there.
--- NOTE | 2024-08-05 08:21 | PRELIM_ITS ---
CT scan of the head without intravenous contrast (axial sections with sagittal and coronal reformats). August 04, 2024 at 1609 hours Clinical History: Change mental status. Comparison: No prior study is available for comparison. Findings: Right craniotomy. The mastoid air cells and visualized paranasal sinuses are clear. Cystic encephalomalacia in the right temporal lobe and right frontal lobe. Encephalomalacia in the left parietal lobe. Chronic bilateral basal ganglia infarctions. Ex vacuo dilatation of the right lateral ventricle. No intracranial hemorrhage. No midline shift. Basal cisterns are preserved. Prominent atherosclerotic calcification is noted. Impression: No intracranial hemorrhage or mass effect. Chronic findings as above. Report Electronically Signed By: Chandana Jorge 08/05/2024 8:20:17 AM [EST]
[2024-08-05 08:25] VITALS: BP 148/99; BP 159/99; BP 182/104; PULSE 71; PULSE 78; PULSE 80; RESP 18; RESP 20; RESP 23; TEMP 36.2; TEMP 36.4; O2SAT 93; O2SAT 94
--- NOTE | 2024-08-05 08:34 | XR_ITS ---
Examination: CT brain head without contrast. 2-D sagittal coronal reconstructions Date and time of exam:August 05, 2024 0836 hours Comparison August 04, 2024 INDICATIONS: Stroke alert, onset focal neurologic deficit CTDI: vol (mGy):57.2 DLP: (mGycm):1176 Technique: Multiple CT axial sections of the brain have been obtained, 5 mm slice thickness. Contrast has not been administered. 2-D sagittal, coronal reconstructions have been obtained Low dose protocols were performed. One or more of the following dose reduction techniques were used; automated exposure control, adjustment of the mA and/or KV according to patient size, use of iterative reconstruction technique. Findings: Again noted large right craniotomy defect with encephalomalacia in the right temporal lobe right frontal and parietal lobes with ipsilateral ventricular dilatation No interval hemorrhage or mass effect Encephalomalacia also in the left parietal lobe IMPRESSION: No interval hemorrhage mass effect or midline shift
--- NOTE | 2024-08-05 08:41 | XR_ITS ---
Examination: CTA carotids with intravenous contrast CTA brain, head with intravenous contrast. 2-D sagittal, coronal reconstructions. 3-D reconstructions. Date and time: August 05, 2024, 0844 hours INDICATIONS: Stroke alert, new onset weakness right side altered mental status CTDI: vol (mGy) 61.5 DLP: (mGycm) 529 Technique: Multiple CTA axial brain, head carotid images post intravenous contrast injection 75 cc, [id number]. 2-D sagittal, coronal reconstructions. 3-D reconstructions, 3-D post processing including vascular maximum intensity projection images. Low dose protocols were performed. One or more of the following dose reduction techniques were used; automated exposure control, adjustment of the mA and/or KV according to patient size, use of iterative reconstruction technique. Findings: No significant common carotid carotid bifurcation or internal carotid artery stenoses Codominant vertebral arteries no critical stenoses Intracranial vertebral arteries do fill Proximal basilar artery is opacified, distal basilar artery is opacified On the CTA images there is opacification of the entire basilar artery There is very poor filling of the posterior cerebral arteries, multiple high-grade stenoses bilaterally Middle cerebral and anterior cerebral arteries do not demonstrate large vessel occlusions IMPRESSION: No significant neck arterial stenoses Intracranial vertebral arteries do fill, on the axial sections proximal basilar artery is opacified, a segment of the mid basilar artery does not opacify, the distal basilar artery is opacified, however on the 3-D reconstructions the basilar artery does opacify, clinical correlation advised Severe stenotic lesions in both posterior cerebral arteries
--- NOTE | 2024-08-05 08:51 | PD.TNEURO ---
Tele Neuro Consultation Consultation Date 08/05/24 Most Recent Vital Signs Last Vital Signs Temp 97.2 F 08/05/24 08:00 Pulse 71 08/05/24 08:00 Resp 18 08/05/24 08:00 BP 182/104 H 08/05/24 08:00 Pulse Ox 93 L 08/05/24 08:00 O2 Del Method Room Air 08/05/24 08:00 Laboratory-Coagulation Panel PT 10.8 Seconds (9.0-12.2) 08/04/24 07:30 INR 1.0 (0.9-1.3) 08/04/24 07:30 APTT 29.8 Seconds (22.0-36.0) 08/04/24 07:30 Consultation Narrative [facility] Tele[facility]urology Consult [facility] Patient Name:???Adal Cesar Date of :???1975 Identification Number:??? Date of Service:???08/05/2024 08:23:43 Diagnosis:?G93.49 - Encephalopathy Multifactorial Impression: ?This patient is a 48-year-old male with a past medical history of hypertension, hyperlipidemia, intracerebral hemorrhage, currently hospitalized with bilateral occipital lobe infarcts presenting for evaluation of right-sided weakness. On my examination the patient appears near obtunded and unresponsive. Symptoms possibly related to seizure given his abnormal EEG versus basilar artery occlusion. Repeat CT angiogram pending to rule this out. Recommend loading with 2500 mg IV Keppra and increasing maintenance Keppra to 7 and 50 mg twice daily. If CT angiogram does not produce actionable findings and the patient remains obtunded would recommend obtaining stat EEG to rule out subclinical seizure. Given the bilateral occipital lobe involvement ME ES is within the differential, though I would not expect the degree of diffusion restriction noted. Our recommendations are outlined below. Recommendations: ? Stroke/Telemetry Floor ? Neuro Checks (Q2) ? Bedside Swallow Eval ? DVT Prophylaxis ? IV Fluids, Normal Saline ? Head of Bed 30 Degrees ? Euglycemia and Avoid Hyperthermia (PRN Acetaminophen) ? Initiate or continue Aspirin 81 MG daily ? Antihypertensives PRN if Blood pressure is greater than 220/120 or there is a concern for End organ damage/contraindications for permissive HTN. If blood pressure is greater than 220/120 give labetalol PO or IV or Vasotec IV with a goal of 15% reduction in BP during the first 24 hours. Sign Out: ? Discussed with Primary Attending Advanced Imaging: Advanced imaging has been ordered. Results pending. Metrics: Last Known Well: 08/05/2024 08:00:00 Dispatch Time: 08/05/2024 08:23:43 Initial Response Time: 08/05/2024 08:25:49Symptoms: right sided weakness. Initial patient interaction: 08/05/2024 08:38:09 NIHSS Assessment Completed: 08/05/2024 08:41:26Patient is not a candidate for Thrombolytic. Thrombolytic Medical Decision: 08/05/2024 08:41:27Patient was not deemed candidate for Thrombolytic because of following reasons: History of previous intracranial hemorrhage, intracranial neoplasm . Significant head trauma or stroke in previous [address] Head: I personally reviewed all the CT images that were available to me and it showed: multiple chronic infarcts in the right hemisphere and subacute left occipital CVA. Primary Provider Notified of Diagnostic Impression and Management Plan on: 08/05/2024 08:45:00 Spoke With: HIM attending at bedside Able to Reach 08/05/2024 08:45:00 History of Present Illness:Patient is a 48 year old Male. Inpatient stroke alert was called for symptoms of right sided weakness. This patient is a 48-year-old male with a past medical history of hypertension, hyperlipidemia, intracerebral hemorrhage, currently hospitalized for acute ischemic stroke presenting for evaluation of new onset right-sided weakness. The patient's initial symptoms were dizziness, and visual disturbance found to have small bilateral occipital lobe infarcts on MRI as well as 90% stenosis of the right M1 branch. At approximately 8 AM this morning the patient became less responsive and had diminished movement of the right side for which he stroke alert was activated. The patient is unresponsive and unable to participate in HPI. Past Medical History: ?Hypertension ?Hyperlipidemia ?Stroke Other PMH:? ICH unable to obtain due to:?? Patient Cannot Speak Medications: No Anticoagulant use? Antiplatelet use:?Yes?asa Reviewed EMR for current medications Allergies:? Reviewed Allergies Unable To Obtain Due To:?Patient Cannot Speak Social History: Unable To Obtain Due To Patient Status :?Patient Cannot Speak Family History: Family History Cannot Be Obtained Because:Patient Cannot Speak ROS :?ROS Cannot Be Obtained Because:? Patient Cannot Speak Past Surgical History: Past Surgical History Cannot Be Obtained Because: Patient Cannot Speak There Is No Surgical History Contributory To Today?s Visit Examination: BP(159/99),?Pulse(71), 1A: Level of Consciousness - Movements to Pain?+ 2 1B: Ask Month and Age - Could Not Answer Either Question Correctly?+ 2 1C: Blink Eyes & Squeeze Hands - Performs 0 Tasks?+ 2 2: Test Horizontal Extraocular Movements - Normal?+ 0 3: Test Visual Mike - Patient is Bilaterally Blind?+ 3 4: Test Facial Palsy (Use Grimace if Obtunded) - Partial paralysis (lower face)?+ 2 5A: Test Left Arm Motor Drift - No Effort Against [place]?+ 3 5B: Test Right Arm Motor Drift - No Effort Against [place]?+ 3 6A: Test Left Leg Motor Drift - No Effort Against [place]?+ 3 6B: Test Right Leg Motor Drift - No Effort Against [place]?+ 3 7: Test Limb Ataxia (FNF/Heel-Adrian) - Does Not Understand?+ 0 8: Test Sensation - Normal; No sensory loss?+ 0 9: Test Language/Aphasia - Mute/Global Aphasia: No Usable Speech/Auditory Comprehension?+ 3 10: Test Dysarthria - Mute/Anarthric?+ 2 11: Test Extinction/Inattention - No abnormality?+ 0 NIHSS Score:?28 NIHSS Free Text :?The patient lies with his eyes open, intermittently blinking but unresponsive. Does not blink to threat bilaterally. Eyes are midline. Pre-Morbid Modified [place] Scale:0 Points = No symptoms at all Spoke with :?HIM attending at bedside This consult was conducted in real time using interactive audio and video technology. Patient was informed of the technology being used for this visit and agreed to proceed. Patient located in hospital and provider located at home/office setting. Patient is being evaluated for possible acute neurologic impairment and high probability of imminent or life-threatening deterioration. I spent total of 35 minutes providing care to this patient, including time for face to face visit via telemedicine, review of medical records, imaging studies and discussion of findings with providers, the patient and/or family. Dr Gurdeep Hui [facility] For Inpatient follow-up with [facility] physician please call [facility] at . As we are not an outpatient service for any post hospital discharge needs please contact the hospital for assistance. If you have any questions for the [facility] physicians or need to reconsult for clinical or diagnostic changes please contact us via [facility] at .
--- NOTE | 2024-08-05 09:10 | PC.CC ---
Addendum entered by Juan Holguin RN 08/05/24 12:32: 1232 Completed TBA, faxed back to [facility]. Addendum entered by Juan Holguin RN 08/05/24 12:30: 1148 sent paperwork to [facility] through [id number]. [facility] spoke to Tiffanie and she confirmed that she received the paperwork. 1124 checked with hospital unit clerk MRI CD was also sent with the pt 1050 informed hospital unit clerk once MRI CD is done, place it in the chart. 1040 charge nurse informed me that pt is just getting the MRI done and he already spoke to X-ray tech to make CD for MRI. Addendum entered by Juan Holguin RN 08/05/24 12:26: 1035 Made 2 transfer packets. 1 for [facility] with 1 CD inside and 1 for [facility]. Completed all signatures. Gave transfer packets to hospital unit clerk. Addendum entered by Juan Holguin RN 08/05/24 12:26: 1028 received call from Tg at [facility], she wants me to work on TBA. Fax number provided. Original Note: 1023 called charge nurse and informed about ETA. Charge nurse informed me that pt is off unit for MRI. 1023 received call from [facility] that ETA is 11 min. 1016 received call from Tg at [facility], she wants to speak with Dr. Moore to give him recommendation that Dr. Sharif gave her. Conference call connected with Dr. Moore. 1014 received call from Tg at [facility] that she did not receive the clinicals. I informed her that it was sent but fax is getting failed and I got 2 failure notices. She gave me a alternate fax number and I resent the clinicals. 1012 Called [facility], spoke to Sridhar and setup the transport. Sridhar stated he will call me back with ETA. 1011 received call from Mabel at [facility]. I informed her pt is accepted at [facility]. 1015 called ICU charge nurse and informed about accepting info and number for report. 1010 Got accepting information from Tg at [facility]. Pt is accepted at [facility] for inpatient to ED transfer. Accepted by Dr. Sharif. Report can be called at [phone]. 1001 received call from Tg at [facility] that she wants to connect Dr. Sharif neuro-surgery on the line to do peer to peer with Dr. Moore. Conference call connected. 0949 called [facility], spoke to Tg and initiated the transfer. She wants to speak with Dr. Moore, conference call connected. 0940 clinicals faxed to [facility], pushed images. 0933 Received call from Mabel at [facility], gave verbal clinicals. Total call time 12 min. 926 called Carmen with [place] [employer] to notify about transfer, left VM. 09 clinicals sent to [facility]. Images pushed. 918 called [facility], spoke to Klaudia and initiated the stat transfer request. She stated the nurse will give me a call back for clinicals. Klaudia also stated to reach out to insurance to notify about the transfer and get the name and contact number for the person and call her back. Klaudia is aware that it is a stat transfer. [address] 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
[2024-08-05] MEDS: ASPIRIN 300 MG SUPP PR (09:28)
[2024-08-05] MEDS: levETIRAcetam INJ 100 MG/ML VIAL 5ML 2500 MG IVP (09:28)
--- NOTE | 2024-08-05 10:12 | PD.RESCONSUL ---
HPI Data of Consult Requesting Physician: Yajaira Sue MD Admitting Provider: Yajaira Sue MD Attending Provider: Yajaira Sue MD Primary Care Provider: Anatoly Mcdonald Consult Narrative History of present illness: RE: Adal Cesar DATE OF CONSULTATION: 08/05/2024 REASON FOR CONSULTATION: ICU level close monitoring before transfer for neuro intervention to a tertiary care center. 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 Son at bedside to help provide additional information-and states that when getting ready for work this morning, patient started to feel dizzy with associated numbness on his lips and slower to respond. In the ED, stroke alert was called and tele neuro consulted. Head CT showed considerable right temporal lobe encephalomalacia, multiple chronic infarcts in the right hemisphere and subacute left occipital CVA. Given history of intracranial bleed, no IV thrombolytic treatment given and instead given loading dose of Keppra. Teleneuro recommended to admit for further workup/management of possible seizures and encephalopathy. CTA head/neck showed 90% stenosis of distal M1 segment of the right MCA. EKG showed sinus bradycardia with heart rate 59 bpm but otherwise no ST changes, T wave abnormalities noted. Per Tele neuro documentation: Thrombolytic Medical Decision: 08/05/2024 08:41:27Patient was not deemed candidate for Thrombolytic because of history of previous intracranial hemorrhage in previous 3 months NIHSS Score:?28 ; Pre-Morbid Modified [place] Scale:0 Points i.e. No symptoms at all ESTABLISHED DIAGNOSES: 1. MRI brain showed acute infarction involving the left occipital area - Started on aspirin for secondary prevention with close monitoring. 2. Seizure disorder - continue Keppra 500 mg twice a day as the 3. EEG showed right cerebral hemispherical spikes involving frontal central and temporal areas consistent with his previous intracerebral hemorrhage. PHYSICAL EXAMINATION: GENERAL APPEARANCE: Well-developed, obese built male in no acute distress. HEENT: Normocephalic, atraumatic, extraocular movements intact. Pupils: Equal reacting to light and accommodation NECK: Supple, no JVD or bruits. CARDIOVASULAR: Heart: S1, S2 heard, regular without S3-S4 or murmur no rubs or gallops. LUNGS/CHEST: Clear to auscultation bilaterally. No rails, rhonchi, or wheezing. Normal inspection. ABDOMEN: Soft, nontender, with normal bowel sounds. No pulsatile masses. No rebound, rigidity, or guarding. Normal inspection and palpation. EXTREMITIES: Normal inspection and palpation. No edema, clubbing or cyanosis. SKIN: Warm and dry without rashes. Normal inspection. MUSCULOSKELETAL: No cervical, thoracic, lumbar or midline bony tenderness. Normal inspection. NEURO: Alert, awake and oriented x3. Cranial nerves: II through XII grossly intact. Speech and language: Dysarthric/hypophonic. Motor system: Tone and bulk: Normal: Strength: 5 out of 5 in all 4 extremities; No pronator drift noted. Deep tendon reflexes: 2+ bilaterally symmetrical. Plantar reflex: Downgoing bilaterally. Sensory system: Intact to all modalities of sensation bilaterally. Coordination: Intact to [id number] and [id number] test bilaterally. No ataxia, no dysmetria, or dysdiadochokinesia noted. No intention tremors noted. Gait: Not tested. No signs of meningeal irritation noted. PSYCHIATRIC: Flat affect RECOMMENDATION: Patient is being airlifted to a tertiary care center with neurosurgery intervention service. Thrombo-embolectomy to be attempted. Plan of care discussed with canopy stringer Dr Ramirez - Rob Todd M.D. PGY2 Disclaimer: Minor errors in engineering production worker may be present as this note was dictated using voice recognition software. cc:: cc: Yajaira Sue MD Exam Vital Signs Temp Pulse Resp BP Pulse Ox O2 Del Method 97.2 F 71 18 182/104 H 93 L Room Air 08/05/24 08:00 08/05/24 08:00 08/05/24 08:00 08/05/24 08:00 08/05/24 08:00 08/05/24 08:00 Results Labs 08/05/24 04:56 08/05/24 04:56 Labs: Short CBC 08/05/24 Range/Units 04:56 WBC 9.5 (3.8-10.6) Thou/mm3 Hgb 14.8 (13.5-16.0) g/dL Hct 42.9 (41.0-53.0) % Plt Count 196 (140-440) Thou/mm3 BMP 08/05/24 04:56 Sodium 145 Potassium 3.8 Chloride 106 Carbon Dioxide 28.9 BUN 13 Creatinine 1.1 Glucose 100 Calcium 8.9 Cardiac Enzymes 08/04/24 Range/Units 10:10 Troponin I 0.147 H* (0.0-0.045) ng/mL Quality Measures Quality Measures none Medications Home Medications and Allergies Home Medications ?Medication ?Instructions ?Recorded ?Confirmed ?Type hydralazine 50 mg tablet mg 08/04/24 History losartan 50 mg tablet mg 08/04/24 History meclizine 25 mg tablet mg 08/04/24 History Allergies Allergy/AdvReac Type Severity Reaction Status Date / Time No Known Allergies Allergy Verified 08/04/24 07:15 Visit Medications Acetaminophen (Acetaminophen 325 Mg Tablet) 650 mg PO Q6H PRN PRN Reason: PAIN OR FEVER > 100.4 Stop: 09/03/24 09:30 Aspirin (Aspirin 300 Mg Supp) 300 mg SC DAILY [facility] Stop: 09/03/24 19:59 Last Admin: 08/05/24 09:28 Dose: 300 mg Atorvastatin Calcium (Atorvastatin Calcium 20 Mg Tablet) 80 mg PO HS [facility] Stop: 09/04/24 20:59 Lactated Ringer's (Lactated Ringers) 1,000 mls @ 80 mls/hr IV .[id number] [facility] Stop: 09/03/24 09:39 Last Admin: 08/05/24 01:56 Dose: 80 mls/hr Labetalol HCl (Labetalol Inj 5 Mg/Ml Vial 20 Ml) 10 mg IVP Q15M PRN PRN Reason: Hypertension Stop: 09/03/24 18:36 Last Admin: 08/05/24 07:21 Dose: 10 mg Levetiracetam (Levetiracetam Inj 100 Mg/Ml Vial 5ml) 500 mg IVP Q12HR [facility] Stop: 09/04/24 08:59 Last Admin: 08/05/24 09:12 Dose: Not Given Lisinopril (Lisinopril 2.5 Mg Tablet) 10 mg PO QDAY [facility] Stop: 09/04/24 07:59 Last Admin: 08/05/24 09:09 Dose: Not Given Nicardipine HCl (Nicardipine 20 Mg Capsule) 20 mg PO TID [facility] Stop: 09/04/24 07:44 Last Admin: 08/05/24 09:09 Dose: Not Given Ondansetron HCl (Ondansetron Inj 2 Mg/Ml Inj 2 Ml) 4 mg IVP Q4HR PRN PRN Reason: NAUSEA OR VOMITING Stop: 09/03/24 07:27 Last Admin: 08/04/24 12:50 Dose: 4 mg Discontinued Medications Hydralazine HCl (Hydralazine Hcl 25 Mg Tablet) 50 mg PO QID [facility] Stop: 09/04/24 07:44 Levetiracetam (Levetiracetam Inj 100 Mg/Ml Vial 5ml) 1,500 mg IVP X1 ONE Stop: 08/04/24 07:56 Last Admin: 08/04/24 08:08 Dose: 1,500 mg Levetiracetam (Levetiracetam Inj 100 Mg/Ml Vial 5ml) 2,500 mg IVP X1 ONE Stop: 08/05/24 08:46 Last Admin: 08/05/24 09:28 Dose: 2,500 mg Lisinopril (Lisinopril 2.5 Mg Tablet) 5 mg PO QDAY [facility] Stop: 09/04/24 08:59 Lisinopril (Lisinopril 2.5 Mg Tablet) 10 mg PO QDAY [facility] Stop: 09/04/24 08:59 Lorazepam (Lorazepam 2 Mg/Ml Vial) 2 mg IVP X1 PRN PRN Reason: seizure Nicardipine HCl (Nicardipine 20 Mg Capsule) 20 mg PO BID [facility] Stop: 09/04/24 08:59 Nicardipine HCl (Nicardipine 20 Mg Capsule) 20 mg PO BID [facility] Stop: 09/04/24 07:44
--- NOTE | 2024-08-05 10:51 | ESDS_ITS ---
<Statement entered by Yajaira Sue MD - 08/11/24 13:36> I reviewed above note and agree with findings and plans. I have also personally examined the patient with medicine team and went over assessment and plan with medical team including hospitality internship and resident physician. Planned Discharge Date 08/05/24 DS: Providers Provider Date of admission: 08/04/24 10:03 Primary care physician: Anatoly Mcdonald Admitting Provider: Yajaira Sue MD Attending Provider on Admission: Yajaira Sue MD Consults: 08/04/24 07:28 Consult to Neurology / Tele-Neurology Routine Comment: Consulting Provider: [facility] 08/04/24 09:55 Consult to Neurology / Tele-Neurology Stat Comment: Consulting Provider: Danial Carpenter 08/04/24 13:33 Referral Physical Therapy Routine Comment: Physician Instructions: 08/04/24 16:59 Health Equity Referral - Knowledge Deficit Routine Comment: Positive screening for knowledge deficit needs. 08/05/24 04:03 Referral Speech Therapy Routine Comment: mis. 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 Son at bedside to help provide additional information-and states that when getting ready for work on 08/04 in AM, patient started to feel dizzy with associated numbness on his lips and was slower to respond. No associated weakness, numbness, facial droop, or slurred speech. Of note, patient experienced an episode of dizziness a week ago but apparently resolved. Upon evaluation at bedside, patient is alert and oriented to self and place only, not to birthdate or her year. Appears to have a flat affect and responds in one-word sentences to son that son attributes to patient feeling dizzy. Upon arrival to ED, stroke alert was called and head CT showed considerable right temporal lobe encephalomalacia and primary suspicion for focal seizure of the right temporal lobe. Given history of intracranial bleed, no IV thrombolytic treatment given and instead given loading dose of Keppra. Teleneuro recommended to admit for further workup/management of possible seizures and encephalopathy. On same day rapid response called at approximately 4 PM for change in mentation as patient had become less responsive on the way up from the ED to telemetry. In ED, patient was noted to have a glazed look but was answering questions appropriately with one-word answers and following commands. Upon evaluation during rapid, patient was responding to voice and following commands but less responsive compared to prior evaluation. Stroke alert was called and stat CT did not reveal any acute changes. However, MRI did reveal multiple, acute- appearing embolic infarcts in occipital lobe and was started on both aspirin for future stroke prevention as well as maintenance keppra for possible seizures as EEG showed localized sharp wave activity noted in right frontal and anterior temporal areas, consistent with seizures. Following day, family again noted change in mentation. Upon evaluation, patient was alert but not answering questions. However, he was able to follow commands by squeezing his left hand and move his left toes but not his right hand or toes. Continues to have a glazed look but appear to be more prominent compared to yesterday. Given change in exam findings, rapid response and stroke alert was called. Teleneurology was again consulted, and evaluation of head CT did not reveal any acute interval changes. CTA head and neck was obtained and teleneurology called back and showed concern for possible mid basilar occlusion and recommended transfer. Official read states that proximal basilar artery is opacified, segment of mid basilar artery does not opacify, distal basilar artery is opacified and that on 3D reconstructions basilar artery does not opacify. Additionally, severe stenotic lesions in both posterior cerebral arteries noted. Patient was given an additional loading dose of Keppra prior to obtaining CTA head/neck, continue aspirin and statin, and per recommendations from accepting facility recommend SBP between 120 and 180 and to intubate if GCS less than 8. Current GCS of 9 at time of evaluation. At this time, patient accepted by Dr. Sharif at [facility] for thrombectomy. ----- Plan discussed with attending physician Dr. Linette Moore MD PGY-1 Internal Medicine Time Spent with Patient Time attestation: Total time spent providing and/or coordinating discharge services: Time spent: Greater than 30 minutes Exam Vital Signs Temp Pulse Resp BP Pulse Ox O2 Del Method 97.2 F 71 18 182/104 H 93 L Room Air 08/05/24 08:00 08/05/24 08:00 08/05/24 08:00 08/05/24 08:00 08/05/24 08:00 08/05/24 08:00 Narrative Exam General: alert, not answering questions but able to follow commands, glazed-look appearance HEENT: NC/AT, mucous membranes moist, bilateral sclera anicteric Cardiovascular: regular rate and rhythm, S1/S2 present, no murmurs appreciated Pulmonary: clear to auscultation bilaterally, no rales/rhonchi/wheezes Abdominal: soft, non-tender, non-distended, no rebound/guarding, normal bowel sounds present Musculoskeletal: normal ROM, no peripheral edema Skin: warm and dry, intact, no rashes Neuro: - Alert, not answering questions, but able to follow commands - Able to squeeze left hand and move left toes; did not squeeze right hand or right toes - Blinks eyes when asked to close - GCS 9 -> blinks when asked to close eyes, no verbal response, withdraws from pain, pupils reactive to light Discharge Plan Plan Patient Disposition: Xfer Other Facility Pt Being Transferred to: [facility] Prescriptions/Referrals Prescriptions/Med Rec: No Action lisinopril 10 MG tablet 10 mg PO QDAY Qty: 30 0RF losartan 50 mg tablet Patient Comments: TOME 1 TABLETA POR V A ORAL DOS VECES AL D A meclizine 25 mg tablet hydralazine 50 mg tablet Patient Comments: TOME 1 TABLETA POR V A ORAL CUATRO VECES AL D A Referrals: Anatoly Sofia [Primary Care Provider] - Patient/Caregiver Discharge Instructions Education Materials: Discharge Instructions for ... Print Language: Liberian Stand Alone Forms: [employer] Award Info., Patient Portal Info Letter Discharge Order Discharge Orders: Discharge (Routine); Ordered 08/05/24 Ordered By: Yajaira Sue Quality Discharge Quality Measures none (Contraindicatd given history of intracranial bleed)
[2024-08-05 11:10] VITALS: BP 146/98; PULSE 80; RESP 17; TEMP 36.3; O2SAT 96
--- NOTE | 2024-08-05 11:33 | PC.SS ---
Patient Adal Cesar is a 48 Year old male admitted for Acute Encephalopathy. SS met with patient and patient's , Juan Manuel Cesar at bedside, she reports herself and her son, Husam Cesar are patient's surrogate decision makers. patient's reports that prior to admission patient was able to ambulate and did not utilize any source of DME to assist with ambulation. Patients PCP is Anatoly Sofia. Patient's reports at time of discharge she would like for patient to discharge home. Family will provide transportation. Next of kin: Catherine Cesar [phone], Son, Husam Cesar [phone]
--- NOTE | 2024-08-05 13:12 | PD.RESEVENT ---
Documentation for date of: 08/05/24 Event Note Event Note: Rapid response called at approximately 8:15 AM for acute change in mental status. Upon evaluation, patient was not able to answer questions but was able to follow commands. On exam, able to squeeze left hand and move left toes, but unable to squeeze right hand or move right toes. Appeared to have a glazed look that was more pronounced than yesterday. GCS of 9 as patient does look toward direction of name being called, withdraws from pain, and pupils reactive to light but no verbal responses. Given sudden changes in mentation and differences in exam compared to day prior, stroke alert was called. Patient was immediately brought down to CT for CT head, which did not show any acute interval changes. Per telenurology recommendations, another loading dose of ativan was given due to suspicion of seizure. However, CTA heck/neck obtained shortly thereafter showed high suspicion for occlusion in mid basilar artery for stat transfer was warranted. Please see discharge summary for details further details. ----- Plan discussed with attending physician Dr. Linette Moore MD PGY-1 Internal Medicine
--- NOTE | 2024-08-17 23:32 | ESPR_ITS ---
Documentation for date of: 08/05/24 Subjective Subjective Interval history: Patient was seen in telemetry today with his family at the bedside. His mental status is not back to baseline according to the family. No witnessed tonic- clonic convulsions reported. He is very slow in responding. Exam - Neurology Vital Signs Temp Pulse Resp BP Pulse Ox O2 Del Method O2 Flow Rate 97.3 F 80 17 146/98 H 96 Nasal Cannula 2 08/05/24 11:10 08/05/24 11:10 08/05/24 11:10 08/05/24 11:10 08/05/24 11:10 08/05/24 11:10 08/05/24 11:10 Objective Labs 08/05/24 04:56 08/05/24 04:56 Assessment & Plan Assessment and plan (1) Acute CVA (cerebrovascular accident): Status: Acute (2) Hypertension: Status: Acute (3) Seizure: Status: Acute
== END 2024-08-05 11:33 | disposition other institution (70) | DRG 65 ==
LOC: SERX 08:17 → SERHOLD 10:07 → S2NX 16:00
PROVIDERS: Admitting Provider Internal Medicine; Emergency Provider Emergency Medicine; PCP Physician Assistant; Visit Provider Internal Medicine
DX: I63.9 Cerebral infarction, unspecified (principal); G40.89 Other seizures; G81.91 Hemiplegia, unspecified affecting right dominant side; G93.89 Other specified disorders of brain; I10 Essential (primary) hypertension; I65.1 Occlusion and stenosis of basilar artery; Z86.73 Personal history of transient ischemic attack (TIA), and cerebral infarction without residual deficits; R29.728 NIHSS score 28; Z79.899 Other long term (current) drug therapy
CPT/HCPCS: 36415; 70450; 70496; 70498; 70544; 70551; 80048; 80053; 80061; 80307; 83735; 84100; 84443; 84484; 85025; 85610; 85730; 92610; 93005; 93306; 95816; 96374; 96375; 99285; A4649; J1953; J2405; J3490; J7120; Q9967; A9270; J1920

== ENCOUNTER 2024-08-24 21:16 | Inpatient (IN) | payer BC, OTHER, SELFPAY ==
[2024-08-24 21:30] VITALS: BP 136/92; PULSE 117; RESP 20; TEMP 36.1; O2SAT 95; O2SAT 96
--- NOTE | 2024-08-24 23:22 | PD.RESHP ---
Documentation for date of: 08/24/24 HPI History of Present Illness Chief complaint: CVA and A-fib History of present illness: 48-year-old male with past medical history of right ganglia hemorrhagic stroke s/p craniotomy and hypertension was transferred back to our hospital on 08/24/2024 from [facility] where patient underwent mechanical thrombectomy. Patient was transferred to [facility] on 08/05/2024 and he underwent thrombectomy same day upon arrival for basilar artery occlusion. Patient's hospital course was at t [facility] was complicated by patient going into A-fib and having ventilator associated pneumonia as well and requiring tracheostomy and PEG tube placement on 08/10/2024 due to not being able to be weaned off mechanical ventilation. At this time patient was started on Eliquis 5 mg twice daily as well as atorvastatin 80 mg at bedtime and Cardizem 30 mg every 6 hours for his A-fib and for his acute CVA. Patient also received 7 days of cefepime for his ventilator associated pneumonia. Patient at this time has no new complaints, but is very emotional given everything that is going on at this time, but he denies having any shortness of breath, chest pain, abdominal pain, changes in bowel movement, pain during urination, or headaches. Review of Systems Review of Systems Systems Reviewed: All systems reviewed, normal except as documented Past Medical History Past Medical History NEUROLOGIC: Positive Cerebrovascular Accident (HEMORRHAGIC STROKE) CARDIAC: Positive Cardiac Disorders ( clogged artey ) and Hypertension Social History SMOKING STATUS: Never smoker SUBSTANCE USE: does not use ALCOHOL: Never Exam Narrative Exam General: A/O x3, emotional, but no acute distress Eyes: PERRL, EOMI. Anicteric, vision grossly intact. Ears: No ear pain, no ear discharge, Hearing grossly intact. Nose: No nasal discharge. Mouth/Throat: Moist mucous membranes, no redness, no lesions. Neck: Neck supple, non-tender, no cervical lymphadenopathy. Lungs: Clear OZ to auscultation and percussion, No accessory muscle use. Cardio: Normal S1/S2, regular rhythm, no murmurs, no JVD Abdomen: Soft, non-tender, no palpable masses, peristalsis present, no guarding or rebound. Extremities: Symmetrical, no significant deformities, no peripheral edema , non-tender, peripheral pulses presents. Skin: No rashes, no lesions, warm to touch. Neuro: L UE weakness and innability to raise independently. Only able to move hand on L UE. R UE and OZ LE movement intact. Mild decrease in L LE strength compared to R LE. Able to follow all commands. Sensory intact. No facial assymetry. Psych: emotional Quality Measures Quality Measures VTE prophylaxis Medications Home Medications and Allergies Home Medications ?Medication ?Instructions ?Recorded ?Confirmed ?Type hydralazine 50 mg tablet 50 mg PO Q6H PRN hypertension 08/04/24 08/25/24 History losartan 50 mg tablet 50 mg PO .once 08/04/24 08/25/24 History meclizine 25 mg tablet 25 mg PO TID PRN dizziness 08/04/24 08/25/24 History amlodipine 5 mg tablet 5 mg PO QDAY 08/25/24 08/25/24 History metoprolol tartrate 50 mg tablet 50 mg PO Q6H PRN hold if heart 08/25/24 08/25/24 History (Lopressor) rate is less than 60 Allergies Allergy/AdvReac Type Severity Reaction Status Date / Time No Known Allergies Allergy Verified 08/04/24 07:15 Visit Medications Acetaminophen (Acetaminophen 325 Mg Tablet) 650 mg PO Q6H PRN PRN Reason: Fever >100.4 Stop: 09/23/24 23:11 Hydrocodone Bitart/Acetaminophen (Hydrocodone/Apap 5/325 Tablet) 1 tab PO Q4HR PRN PRN Reason: PAIN SCALE 4-6 (Moderate Stop: 08/29/24 23:11 Apixaban (Apixaban 2.5 Mg Tablet) 5 mg PO BID [place] Stop: 09/24/24 08:59 Atorvastatin Calcium (Atorvastatin Calcium 20 Mg Tablet) 80 mg GT HS [place] Stop: 09/24/24 20:59 Diltiazem HCl (Diltiazem 30 Mg Tablet) 30 mg GT QID [place] Stop: 09/24/24 05:59 Hydroxyzine HCl (Hydroxyzine Hcl 10 Mg Tablet) 10 mg PO Q6HR PRN PRN Reason: ANXIETY Stop: 09/23/24 23:16 Ondansetron HCl (Ondansetron Inj 2 Mg/Ml Inj 2 Ml) 4 mg IVP Q6H PRN; Protocol PRN Reason: NAUSEA OR VOMITING Stop: 09/23/24 23:11 Sennosides (Senna Tablet) [address] [facility]; Protocol Stop: 09/24/24 08:59 Assessment & Plan Plan 48-year-old male with past medical history of right ganglia hemorrhagic stroke s/p craniotomy and hypertension was transferred back to our hospital on 08/24/2024 from [facility] where patient underwent mechanical thrombectomy. 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 Patient had tracheostomy and PEG tube placement due to inability to being weaned off mechanical ventilation. Plan: Eliquis 5 mg twice daily Atorvastatin 80 mg at bedtime Neurochecks daily Neurology consulted, appreciate commendations Refer to registered dietitian #A-fib Patient went into A-fib during [facility] hospital course [id number] 3 points indicating 3.2% risk of stroke per year. HAS-BLED 1, low risk of major bleed Plan: Eliquis 5 mg twice daily Cardizem 30 mg every 6 hours Consider cardiology consult Will continue monitoring Disposition: Patient admitted to telemetry for CVA. Diet: NPo GI prophylaxis: not indicated DVT prophylaxis: Charley Temple Code: Full Case disclosed with Attending Dr. Candida Bell PGY1 Disclaimer: Even though this this note was dictated by speech recognition and even though it was carefully revised there may still be minor errors in driver service technician due to voice recognition software. Attending Provider Attestation/Addendum 48-year-old right-handed male patient with history of hemorrhagic CVA back in 2021. The patient has hypertension. Patient is s/p craniotomy. He was repatriated from [facility] for he had mechanical thrombectomy for basilar artery occlusion on August 06, 2024. The patient is status post trach and PEG. He is awake. He is able to follow commands slowly. He moves his right arm and leg very well. He has weakness of the left upper extremity. He moves his left lower extremity. The patient is on Eliquis. He was found to have atrial fibrillation. I discussed with and supervised the resident physician who took care of this patient. I agree with the assessment and plan as above.
[2024-08-25] VITALS (12 sets, daily range): BP systolic 109–125; BP diastolic 57–92; PULSE 77–100; RESP 14–24; TEMP 36–36.6; O2SAT 98–99; BMI 34.9; BMI 37.0
[2024-08-25] MEDS: DILTIAZEM 30 MG TABLET GT ×4 (05:23→20:32)
[2024-08-25 06:05] LABS: Basophils # (Auto) 0.0 Thou/mm3 (0.0-0.2); Basophils % (Auto) 0 % (0-2.5); Eosinophils # (Auto) 0.3 Thou/mm3 (0.0-0.5); Eosinophils % (Auto) 3 % (0-10); Hematocrit 40.7 % (41.0-53.0); Hemoglobin 14.1 g/dL (13.5-16.0); Immature Granulocytes Auto 0.04 Thou/mm3 (0.00-0.00); Lymphocytes # (Auto) 1.8 Thou/mm3 (1.0-4.8); Lymphocytes % (Auto) 15 % (10-50); Mean Corpuscular HGB Conc 34.6 g/dl (31.0-37.0); Mean Corpuscular Hemoglobin 30.4 pg (25.0-35.0); Mean Corpuscular Volume 88 fL (80-100); Monocytes # (Auto) 0.6 Thou/mm3 (0.0-0.8); Monocytes % (Auto) 5 % (0-12); Neutrophils # (Auto) 9.0 Thou/mm3 (1.8-7.7); Neutrophils % (Auto) 77 % (37-80); Nucleated Red Blood Cell # 0.00 Thou/mm3 (0.00-0.00); Nucleated Red Blood Cell % 0 /100 WBC (0); Platelet Count 241 Thou/mm3 (140-440); RDW Standard Deviation 39.8 fL (35.1-43.9); Red Blood Count 4.64 Miln/mm3 (4.50-5.90); White Blood Count 11.7 Thou/mm3 (3.8-10.6)
[2024-08-25 06:51] LABS: Alanine Aminotransferase 20 U/L (10-49); Albumin, Serum 3.9 gm/dL (3.5-5.0); Albumin/Globulin Ratio 1.7 (1.2-2.2); Alkaline Phosphatase 69 U/L (46-116); Anion Gap 10 (7-16); Aspartate Amino Transferase 20 U/L (0-34); BUN/Creatinine Ratio 15 Ratio (12-20); Bilirubin,Total 0.7 mg/dL (0.3-1.2); Blood Urea Nitrogen 17 mg/dL (9-23); Calcium 9.3 mg/dL (8.3-10.6); Calcium (Corrected) 9.4 mg/dL (8.5-10.1); Carbon Dioxide 29.4 mMol/L (20.0-31.0); Chloride 102 mMol/L (98-107); Creatinine (Component) 1.1 mg/dL (0.6-1.3); Globulin 2.3 gm/dL (2.3-3.5); Glucose 101 mg/dL (74-106); Magnesium 2.3 mg/dL (1.6-2.6); Osmolality,Calculated 282 (275-295); Potassium 4.0 mMol/L (3.4-5.1); Sodium 141 mMol/L (136-145); Total Protein 6.2 gm/dL (5.7-8.2); eGFR > 60 See Note
[2024-08-25] MEDS: APIXABAN 2.5 MG TABLET 5 MG PO ×2 (09:32→20:32)
--- NOTE | 2024-08-25 09:56 | PC.SS ---
Patient Adal Cesar is a 48 Year old male admitted for Acute CVA and A-FIB.. SS met with patient and patient's , Juan Manuel Cesar at bedside, she reports herself and her son, Husam Cesar are patient's surrogate decision makers. patient's reports that prior to admission patient was able to ambulate and did not utilize any source of DME to assist with ambulation. However patient was transferred back from [facility] and is now trach and pegged, patient has not been out of bed since and now requires assistance completing ADL's. Patients PCP is Anatoly Sofia. SS reported to patient's , that SS will be searching for Subacute facilities for patient, patients agreeable. Next of kin: Catherine Cesar [phone], Son, Husam Cesar [phone] Discharge Plan: Subacute, Pending
--- NOTE | 2024-08-25 10:16 | PC.SS ---
Addendum entered by Neeta Pritchard 08/25/24 15:34: SS contacted patient's son, Husam and informed him that SS has attempted to contact Michaela from [facility] however has been unsuccessful. Patient's son reported his mother want's patient closer to home, SS informed him the difficulty of placements for LTAC's and Subacute patients do to the higher level of care needed. Patient's son, Husam reported that he would like for SS to attempt to contact Michaela from [facility] before going forward with having patient discharge to [facility]. SS updated Team A. Addendum entered by Neeta Pritchard 08/25/24 15:02: SS follow up note; SS met with patient's at bedside and informed her that [facility] accepted patient, however patient's reported that [facility] contacted patient's son and informed him that they are reviewing patient's clinicals at the time. SS attempted to contact Michaela from [facility], . SS left voicemail with contact number. SS contacted Dr. Moore and he informed SS that at the time patient was not medically cleared and was still pending a CT of the head and pending Dr. Carpenter's recs for medication adjustment. SS explained to patient's the difficulty of trying to find placement for patient. Patient's expressed that she does not want patient to discharge out of the critical access hospital. SS will attempt to contact Michaela from [facility] again. Addendum entered by Neeta Pritchard 08/25/24 13:31: SS follow up note; SS was contacted by Keegan from [facility] and he informed SS that most likely they are able to accept patient, however clinicals are still in review. SS also contacted Josey from [facility] at [facility] and she informed SS that at the time they are reviewing patient's chart and will notify SS either Tomorrow or Thursday. Addendum entered by Neeta Pritchard 08/25/24 12:01: SS follow up note; SS contacted [facility] at [facility] and spoke to Josey, she requested for SS to sent clinicals and faxed to [phone]. Josey reported that there will be a male bed available within 1-2 days and there for will review patient's clinicals. SS will continue to search for placement for patient. Addendum entered by Neeta Pritchard 08/25/24 10:58: SS follow up note; SS expanded the search via [employer] for subacute facilities as well as submitted for LTAC through [employer] to 100 radius. Original Note: SS follow up note; SS sent out subacute inquiry through [employer] and expanded the search to [address].
--- NOTE | 2024-08-25 13:10 | ESPR_ITS ---
Documentation for date of: 08/25/24 Subjective Subjective Interval history: Overnight admission. Seen and examined at bedside with present and he is able to understand what is being said to him and can follow commands. However, he has decreased strength in his left upper and lower extremities. At this time, currently searching for subacute facilities as well as LTAC with [facility] already excepting the patient but clinicals are still in review and will contact our social workers tomorrow or Thursday. Exam Vital Signs Temp Pulse Resp BP Pulse Ox O2 Del Method O2 Flow Rate 96.8 F 91 18 119/88 H 99 Blow-by 7 08/25/24 08:00 08/25/24 12:43 08/25/24 08:00 08/25/24 12:43 08/25/24 08:00 08/25/24 08:00 08/25/24 08:00 FiO2 40 08/24/24 21:30 Narrative Exam General: alert, not speaking at bedside but shows understanding, no acute distress, able to speak full sentences HEENT: trach in place, NC/AT, mucous membranes moist, bilateral sclera anicteric Cardiovascular: regular rate and rhythm, S1/S2 present, no murmurs appreciated Pulmonary: clear to auscultation bilaterally, no rales/rhonchi/wheezes Abdominal: PEG in place, soft, non-tender, non-distended, no rebound/guarding, normal bowel sounds present Musculoskeletal: normal ROM, no peripheral edema Skin: warm and dry, intact, no rashes Neuro: - Alert, follows commands, not able to verbalize - Able to move right upper and lower extremities without much difficulty - Can wiggle fingers and toes in right upper and lower extremities, respectively Objective Labs 08/26/24 04:50 08/26/24 04:50 Labs: Laboratory Results - last 24 hr 08/25/24 05:14 WBC 11.7 H RBC 4.64 Hgb 14.1 Hct 40.7 L MCV 88 MCH 30.4 MCHC 34.6 RDW Std Deviation 39.8 Plt Count 241 D Neut % (Auto) 77 Lymph % (Auto) 15 [place] % (Auto) 5 Eos % (Auto) 3 Baso % (Auto) 0 Neut # (Auto) 9.0 H Lymph # (Auto) 1.8 [place] # (Auto) 0.6 Eos # (Auto) 0.3 Baso # (Auto) 0.0 Immature Gran # (Auto) 0.04 H Absolute Nucleated RBC 0.00 Immature Gran % 0 Nucleated RBC % 0 Sodium 141 Potassium 4.0 Chloride 102 Carbon Dioxide 29.4 Anion Gap 10 BUN 17 Creatinine 1.1 Estim Creat Clear Calc Not Performed. eGFR > 60 BUN/Creatinine Ratio 15 Glucose 101 Calculated Osmolality 282 Calcium 9.3 Corrected Calcium 9.4 Magnesium 2.3 Total Bilirubin 0.7 AST 20 ALT 20 Alkaline Phosphatase 69 Total Protein 6.2 Albumin 3.9 Globulin 2.3 Albumin/Globulin Ratio 1.7 Quality Measures Quality Measures VTE prophylaxis Assessment & Plan Assessment Current Active Medications: Generic Name Dose Route Start Last Admin Trade Name Freq PRN Reason Stop Dose Admin Acetaminophen 650 mg 08/24/24 23:12 Acetaminophen 325 Mg Tablet PO 09/23/24 23:11 Q6H PRN Fever >100.4 Hydrocodone Bitart/Acetaminophen 1 tab 08/24/24 23:12 Hydrocodone/Apap 5/325 Tablet PO 08/29/24 23:11 Q4HR PRN PAIN SCALE 4-6 (Moderate Apixaban 5 mg 08/25/24 09:00 08/25/24 09:32 Apixaban 2.5 Mg Tablet PO 09/24/24 08:59 5 mg BID BRADFORD Administration Atorvastatin Calcium 80 mg 08/25/24 21:00 Atorvastatin Calcium 20 Mg Tablet GT 09/24/24 20:59 HS BRADFORD Diltiazem HCl 30 mg 08/25/24 06:00 08/25/24 12:43 Diltiazem 30 Mg Tablet GT 09/24/24 05:59 30 mg QID BRADFORD Administration Hydroxyzine HCl 10 mg 08/24/24 23:17 Hydroxyzine Hcl 10 Mg Tablet PO 09/23/24 23:16 Q6HR PRN ANXIETY Ondansetron HCl 4 mg 08/24/24 23:12 Ondansetron Inj 2 Mg/Ml Inj 2 Ml IVP 09/23/24 23:11 Q6H PRN NAUSEA OR VOMITING Protocol Sennosides 1 tab 08/25/24 09:00 08/25/24 09:32 Senna Tablet PO 09/24/24 08:59 1 tab QDAY BRADFORD Administration Protocol Plan Adal Cesar is a 48-year-old male with past medical history of right ganglia hemorrhagic stroke s/p craniotomy and hypertension who was transferred back on 08/24/2024 from [facility] where patient underwent mechanical thrombectomy. 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 Had tracheostomy and PEG tube placement due to inability to be weaned off mechanical ventilation. ? Neurology following, appreciate recommendations ? Follow-up CT head, will decide after results are in and touch base with neurology regarding need for antiplatelets ? Atorvastatin 80 mg at bedtime ? Neurochecks daily ? Jevity tube feedings ? Pending placement at [facility] vs LTAC #A-fib with RVR Went into a-fib with RVR during stay at [facility]. [id number] score: 3, indicating 3.2% risk of stroke per year. HAS-BLED score 1, low risk of major bleed. ? Eliquis 5 mg twice daily ? Cardizem 30 mg every 6 hours ? Continue monitoring on telemetry Hospital management: Disposition: CT head, pending placement Fluids: Not indicated Diet: Jevity tube feedings Lines: PIV, PEG tube DVT prophylaxis: Eliquis 5 mg twice daily GI prophylaxis: Not indicated CODE STATUS: full code ----- Plan discussed with attending physician Dr. Pamela Moore MD PGY-1 Internal Medicine Attending Provider Attestation/Addendum I have examined the patient, reviewed labs and imaging findings, discussed the case with the resident(s), and reviewed entered orders. I agree with the plan of care as outlined in this note, with these additional summaries/recommendations: Patient and seen at bedside. No acute overnight events. Patient seen resting comfortably on blow-by and able to respond to some questions by shaking his head yes and no. 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 Patient unfortunately was not able to be extubated and received tracheostomy and PEG tube. Patient now on blow-by and will continue to wean O2 requirements as tolerated. Dietary consulted for tube feeds and free water flushes. health services director working on placement. Continue Eliquis and Cardizem for atrial fibrillation. Patient and updated on the plan and in agreement. All questions answered to satisfaction. Please see residents note for additional details and management. Dr. Pamela MD
--- NOTE | 2024-08-25 14:25 | XR_ITS ---
Examination: CT brain head without contrast. 2-D sagittal coronal reconstructions Date and time of exam:August 25, 2024 at 1530 hours Comparison August 05, 2024 INDICATIONS: Stroke alert, onset focal neurologic deficit August 05, 2024 CTDI: vol (mGy):53.3 DLP: (mGycm):1129 Technique: Multiple CT axial sections of the brain have been obtained, 5 mm slice thickness. Contrast has not been administered. 2-D sagittal, coronal reconstructions have been obtained Low dose protocols were performed. One or more of the following dose reduction techniques were used; automated exposure control, adjustment of the mA and/or KV according to patient size, use of iterative reconstruction technique. Findings: Right craniotomy defects with encephalomalacia right temporal lobe right frontal lobe right caudate nucleus left posterior parietal lobe Mild to moderate ventricular enlargement No mass effect upon the ventricular system No acute hemorrhage IMPRESSION: No interval acute hemorrhage or mass effect
--- NOTE | 2024-08-25 15:59 | PC.SS ---
SS follow up note; SS was contacted by Michaela from [facility] and she informed SS that most likey they are able to accept patient, however would need to submit for authorization tomorrow, since her authorization mutuel clerk is not in the office today. SS will update patient's family in regards to [facility] accepting. SS will follow up with Michaela shelton.
[2024-08-25] MEDS: ATORVASTATIN CALCIUM 20 MG TABLET 80 MG GT (20:32)
--- NOTE | 2024-08-25 23:22 | PD.NEUROPROG ---
Documentation for date of: 08/25/24 Subjective Subjective Interval history: Patient was seen in telemetry today with his family at the bedside. Left UE weakness remains unchanged. He is trached and on ventilatory support. Exam - Neurology Vital Signs Temp Pulse Resp BP Pulse Ox O2 Del Method O2 Flow Rate 97.4 F 91 24 H 109/57 L 98 Blow-by 8 08/25/24 20:00 08/25/24 20:32 08/25/24 20:00 08/25/24 20:32 08/25/24 20:00 08/25/24 20:00 08/25/24 20:00 FiO2 40 08/25/24 20:00 Narrative Exam GENERAL APPEARANCE: Well-developed, obese built male in no acute distress. HEENT: Normocephalic, atraumatic, extraocular movements intact. Pupils: Equal reacting to light and accommodation NECK: Supple, no JVD or bruits. CARDIOVASULAR: Heart: S1, S2 heard, regular without S3-S4 or murmur no rubs or gallops. LUNGS/CHEST: Clear to auscultation bilaterally. No rails, rhonchi, or wheezing. Normal inspection. ABDOMEN: Soft, nontender, with normal bowel sounds. No pulsatile masses. No rebound, rigidity, or guarding. Normal inspection and palpation. EXTREMITIES: Normal inspection and palpation. No edema, clubbing or cyanosis. SKIN: Warm and dry without rashes. Normal inspection. MUSCULOSKELETAL: No cervical, thoracic, lumbar or midline bony tenderness. Normal inspection. NEURO: Alert, awake . Cranial nerves: II through XII grossly intact. Speech and language: limited. Motor system: Tone and bulk: Normal: Strength: moves all extremities with the exception of the left UE. Pronator drift noted. Deep tendon reflexes: 2+ bilaterally symmetrical. Plantar reflex: Downgoing bilaterally. Sensory system: Intact to all modalities of sensation bilaterally. Coordination: Intact to [id number] and hray-giri-[id number] test bilaterally. No ataxia, no dysmetria, or dysdiadochokinesia noted. No intention tremors noted. Gait: Not tested. No signs of meningeal irritation noted. PSYCHIATRIC: Flat affect, emotional lability noted. Objective Labs 08/25/24 05:14 08/25/24 05:14 Labs: Laboratory Results - last 24 hr 08/25/24 05:14 WBC 11.7 H RBC 4.64 Hgb 14.1 Hct 40.7 L MCV 88 MCH 30.4 MCHC 34.6 RDW Std Deviation 39.8 Plt Count 241 D Neut % (Auto) 77 Lymph % (Auto) 15 [place] % (Auto) 5 Eos % (Auto) 3 Baso % (Auto) 0 Neut # (Auto) 9.0 H Lymph # (Auto) 1.8 [place] # (Auto) 0.6 Eos # (Auto) 0.3 Baso # (Auto) 0.0 Immature Gran # (Auto) 0.04 H Absolute Nucleated RBC 0.00 Immature Gran % 0 Nucleated RBC % 0 Sodium 141 Potassium 4.0 Chloride 102 Carbon Dioxide 29.4 Anion Gap 10 BUN 17 Creatinine 1.1 Estim Creat Clear Calc Not Performed. eGFR > 60 BUN/Creatinine Ratio 15 Glucose 101 Calculated Osmolality 282 Calcium 9.3 Corrected Calcium 9.4 Magnesium 2.3 Total Bilirubin 0.7 AST 20 ALT 20 Alkaline Phosphatase 69 Total Protein 6.2 Albumin 3.9 Globulin 2.3 Albumin/Globulin Ratio 1.7 Assessment & Plan Assessment and plan (1) Acute CVA (cerebrovascular accident): Status: Acute Assessment and plan: continue with Eliquis, statin, BP control Intense OT/ST/PT. (2) Hypertension: Status: Chronic Assessment and plan: Continue current meds (3) Seizure: Status: Acute Assessment and plan: stable on keppra.
[2024-08-26] VITALS (12 sets, daily range): BP systolic 116–132; BP diastolic 77–96; PULSE 72–89; RESP 12–24; TEMP 36.1–36.3; O2SAT 95–99; BMI 34.9
[2024-08-26] MEDS: HYDROcodone/APAP 5/325 TABLET 1 TAB PO (00:41)
[2024-08-26] MEDS: DILTIAZEM 30 MG TABLET GT ×3 (05:20→21:19)
[2024-08-26 05:37] LABS: Basophils # (Auto) 0.0 Thou/mm3 (0.0-0.2); Basophils % (Auto) 0 % (0-2.5); Eosinophils # (Auto) 0.3 Thou/mm3 (0.0-0.5); Eosinophils % (Auto) 3 % (0-10); Hematocrit 41.6 % (41.0-53.0); Hemoglobin 14.4 g/dL (13.5-16.0); Immature Granulocytes Auto 0.05 Thou/mm3 (0.00-0.00); Lymphocytes # (Auto) 2.5 Thou/mm3 (1.0-4.8); Lymphocytes % (Auto) 22 % (10-50); Mean Corpuscular HGB Conc 34.6 g/dl (31.0-37.0); Mean Corpuscular Hemoglobin 30.2 pg (25.0-35.0); Mean Corpuscular Volume 87 fL (80-100); Monocytes # (Auto) 0.5 Thou/mm3 (0.0-0.8); Monocytes % (Auto) 5 % (0-12); Neutrophils # (Auto) 7.8 Thou/mm3 (1.8-7.7); Neutrophils % (Auto) 69 % (37-80); Nucleated Red Blood Cell # 0.00 Thou/mm3 (0.00-0.00); Nucleated Red Blood Cell % 0 /100 WBC (0); Platelet Count 247 Thou/mm3 (140-440); RDW Standard Deviation 39.7 fL (35.1-43.9); Red Blood Count 4.77 Miln/mm3 (4.50-5.90); White Blood Count 11.2 Thou/mm3 (3.8-10.6)
[2024-08-26 05:55] LABS: Alanine Aminotransferase 20 U/L (10-49); Albumin, Serum 4.2 gm/dL (3.5-5.0); Albumin/Globulin Ratio 1.9 (1.2-2.2); Alkaline Phosphatase 70 U/L (46-116); Anion Gap 10 (7-16); Aspartate Amino Transferase 20 U/L (0-34); BUN/Creatinine Ratio 16 Ratio (12-20); Bilirubin,Total 0.6 mg/dL (0.3-1.2); Blood Urea Nitrogen 18 mg/dL (9-23); Calcium 9.7 mg/dL (8.3-10.6); Calcium (Corrected) 9.7 mg/dL (8.5-10.1); Carbon Dioxide 30.4 mMol/L (20.0-31.0); Chloride 98 mMol/L (98-107); Creatinine (Component) 1.1 mg/dL (0.6-1.3); Estimated Creatinine Clearance 90.7 mL/min (>60); Globulin 2.2 gm/dL (2.3-3.5); Glucose 165 mg/dL (74-106); Magnesium 2.4 mg/dL (1.6-2.6); Osmolality,Calculated 281 (275-295); Potassium 3.6 mMol/L (3.4-5.1); Sodium 138 mMol/L (136-145); Total Protein 6.4 gm/dL (5.7-8.2); eGFR > 60 See Note
[2024-08-26] MEDS: APIXABAN 2.5 MG TABLET 5 MG PO ×2 (08:34→21:18)
[2024-08-26] MEDS: ASPIRIN 81 MG CHEW GT (10:10)
--- NOTE | 2024-08-26 12:09 | PC.SS ---
SS follow up note; SS contacted Michaela from [facility] and she informed SS that her pillowcase folder will not be in the office until Thursday, therefore they can't submit for auth until then. SS verbalized understanding. Patient's family aware.
--- NOTE | 2024-08-26 13:14 | PD.RESPRO ---
Documentation for date of: 08/26/24 Subjective Subjective Interval history: No acute overnight events. Seen and examined at bedside and patient alert, interactive, and following commands. He does not appear to be uncomfortable or in any acute distress. Updated at bedside that at this time he is medically cleared for discharge but just waiting for placement.With neurology and given that EEG was negative at outside facility, will continue to hold off on Keppra and given the CT head did not show any interval changes we will start aspirin. Exam Vital Signs Temp Pulse Resp BP Pulse Ox O2 Del Method O2 Flow Rate 97.4 F 80 13 118/96 H 99 Blow-by 8 08/26/24 12:00 08/26/24 12:00 08/26/24 12:00 08/26/24 12:00 08/26/24 12:00 08/26/24 12:00 08/26/24 12:00 FiO2 40 08/26/24 08:40 Narrative Exam General: alert, not speaking at bedside but shows understanding, no acute distress, able to speak full sentences HEENT: trach in place, NC/AT, mucous membranes moist, bilateral sclera anicteric Cardiovascular: regular rate and rhythm, S1/S2 present, no murmurs appreciated Pulmonary: clear to auscultation bilaterally, no rales/rhonchi/wheezes Abdominal: PEG in place, soft, non-tender, non-distended, no rebound/guarding, normal bowel sounds present Musculoskeletal: normal ROM, no peripheral edema Skin: warm and dry, intact, no rashes Neuro: - Alert, follows commands, not able to verbalize - Able to move right upper and lower extremities without much difficulty - Can wiggle fingers and toes in left upper and lower extremities, respectively Objective Labs 08/27/24 05:10 08/27/24 05:10 Labs: Laboratory Results - last 24 hr 08/26/24 04:50 WBC 11.2 H RBC 4.77 Hgb 14.4 Hct 41.6 MCV 87 MCH 30.2 MCHC 34.6 RDW Std Deviation 39.7 Plt Count 247 Neut % (Auto) 69 Lymph % (Auto) 22 [place] % (Auto) 5 Eos % (Auto) 3 Baso % (Auto) 0 Neut # (Auto) 7.8 H Lymph # (Auto) 2.5 [place] # (Auto) 0.5 Eos # (Auto) 0.3 Baso # (Auto) 0.0 Immature Gran # (Auto) 0.05 H Absolute Nucleated RBC 0.00 Immature Gran % 0 Nucleated RBC % 0 Sodium 138 Potassium 3.6 Chloride 98 Carbon Dioxide 30.4 Anion Gap 10 BUN 18 Creatinine 1.1 Estim Creat Clear Calc 90.7 eGFR > 60 BUN/Creatinine Ratio 16 Glucose 165 H D Calculated Osmolality 281 Calcium 9.7 Corrected Calcium 9.7 Magnesium 2.4 Total Bilirubin 0.6 AST 20 ALT 20 Alkaline Phosphatase 70 Total Protein 6.4 Albumin 4.2 Globulin 2.2 L Albumin/Globulin Ratio 1.9 Quality Measures Quality Measures VTE prophylaxis Assessment & Plan Assessment Current Active Medications: Generic Name Dose Route Start Last Admin Trade Name Freq PRN Reason Stop Dose Admin Acetaminophen 650 mg 08/24/24 23:12 Acetaminophen 325 Mg Tablet PO 09/23/24 23:11 Q6H PRN Fever >100.4 Hydrocodone Bitart/Acetaminophen 1 tab 08/24/24 23:12 08/26/24 00:41 Hydrocodone/Apap 5/325 Tablet PO 08/29/24 23:11 1 tab Q4HR PRN Administration PAIN SCALE 4-6 (Moderate Apixaban 5 mg 08/25/24 09:00 08/26/24 08:34 Apixaban 2.5 Mg Tablet PO 09/24/24 08:59 5 mg BID BRADFORD Administration Aspirin 81 mg 08/26/24 09:15 08/26/24 10:10 Aspirin 81 Mg Chew GT 09/25/24 09:14 81 mg QDAY BRADFORD Administration Atorvastatin Calcium 80 mg 08/25/24 21:00 08/25/24 20:32 Atorvastatin Calcium 20 Mg Tablet GT 09/24/24 20:59 80 mg HS BRADFORD Administration Diltiazem HCl 30 mg 08/25/24 06:00 08/26/24 05:20 Diltiazem 30 Mg Tablet GT 09/24/24 05:59 30 mg QID BRADFORD Administration Hydroxyzine HCl 10 mg 08/24/24 23:17 Hydroxyzine Hcl 10 Mg Tablet PO 09/23/24 23:16 Q6HR PRN ANXIETY Ondansetron HCl 4 mg 08/24/24 23:12 Ondansetron Inj 2 Mg/Ml Inj 2 Ml IVP 09/23/24 23:11 Q6H PRN NAUSEA OR VOMITING Protocol Sennosides 1 tab 08/25/24 09:00 08/26/24 08:34 Senna Tablet PO 09/24/24 08:59 1 tab QDAY BRADFORD Administration Protocol Plan Adal Cesar is a 48-year-old male with past medical history of right ganglia hemorrhagic stroke s/p craniotomy and hypertension who was transferred back on 08/24/2024 from [facility] where patient underwent mechanical thrombectomy. 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 Had tracheostomy and PEG tube placement due to inability to be weaned off mechanical ventilation. ? Neurology following, appreciate recommendations ? Aspirin 81 mg daily, atorvastatin 80 mg at bedtime ? Neurochecks daily ? Jevity tube feedings ? Pending placement at subacute vs LTAC #A-fib with RVR Went into a-fib with RVR during stay at [facility]. [id number] score: 3, indicating 3.2% risk of stroke per year. HAS-BLED score 1, low risk of major bleed. ? Eliquis 5 mg twice daily ? Cardizem 30 mg every 6 hours ? Continue monitoring on telemetry Hospital management: Disposition: pending placement Fluids: Not indicated Diet: Jevity tube feedings Lines: PIV, PEG tube DVT prophylaxis: Eliquis 5 mg twice daily GI prophylaxis: Not indicated CODE STATUS: full code ----- Plan discussed with attending physician Dr. Pamela Moore MD PGY-1 Internal Medicine Attending Provider Attestation/Addendum I have examined the patient, reviewed labs and imaging findings, discussed the case with the resident(s), and reviewed entered orders. I agree with the plan of care as outlined in this note, with these additional summaries/recommendations: Patient and seen at bedside. No acute overnight events. Patient does not appear to have any acute complaints today. Patients inquiring about placement and we are working with social security assessor closely for safe discharge. Continue blow-by and wean as tolerated. Tube feeds and free water flushes resumed. Continue eliquis, aspirin, atorvastatin, and diltiazem. Patient and updated on the plan and in agreement. All questions answered to satisfaction. Please see residents note for additional details and management. Dr. Pamela MD
--- NOTE | 2024-08-26 15:00 | CHAP ---
Patient was visited by the Spiritual Care Volunteer who prayed for them. (Volunteer was in the hospital from 14:00-17:00).
[2024-08-26] MEDS: ATORVASTATIN CALCIUM 20 MG TABLET 80 MG GT (21:19)
--- NOTE | 2024-08-26 22:54 | ESPR_ITS ---
Documentation for date of: 08/26/24 Subjective Subjective Interval history: Patient was seen in telemetry today with his family at the bedside. Left UE weakness remains unchanged. He is trached and on trach collar. Exam - Neurology Vital Signs Temp Pulse Resp BP Pulse Ox O2 Del Method O2 Flow Rate 97.4 F 82 17 119/81 99 Blow-by 8 08/26/24 20:00 08/26/24 21:19 08/26/24 20:00 08/26/24 21:19 08/26/24 20:00 08/26/24 20:00 08/26/24 20:00 FiO2 40 08/26/24 20:00 Narrative Exam GENERAL APPEARANCE: Well-developed, obese built male in no acute distress. HEENT: Normocephalic, atraumatic, extraocular movements intact. Pupils: Equal reacting to light and accommodation NECK: Supple, no JVD or bruits. CARDIOVASULAR: Heart: S1, S2 heard, regular without S3-S4 or murmur no rubs or gallops. LUNGS/CHEST: Clear to auscultation bilaterally. No rails, rhonchi, or wheezing. Normal inspection. ABDOMEN: Soft, nontender, with normal bowel sounds. No pulsatile masses. No rebound, rigidity, or guarding. Normal inspection and palpation. EXTREMITIES: Normal inspection and palpation. No edema, clubbing or cyanosis. SKIN: Warm and dry without rashes. Normal inspection. MUSCULOSKELETAL: No cervical, thoracic, lumbar or midline bony tenderness. Normal inspection. NEURO: Alert, awake . Cranial nerves: II through XII grossly intact. Speech and language: limited. Motor system: Tone and bulk: Normal: Strength: moves all extremities with the exception of the left UE. Pronator drift noted. Deep tendon reflexes: 2+ bilaterally symmetrical. Plantar reflex: Downgoing bilaterally. Sensory system: Intact to all modalities of sensation bilaterally. Coordination: Intact to [id number]-[id number] and yvkt-[id number] test bilaterally. No ataxia, no dysmetria, or dysdiadochokinesia noted. No intention tremors noted. Gait: Not tested. No signs of meningeal irritation noted. PSYCHIATRIC: Flat affect, emotional lability noted. Objective Labs 08/26/24 04:50 08/26/24 04:50 Labs: Laboratory Results - last 24 hr 08/26/24 04:50 WBC 11.2 H RBC 4.77 Hgb 14.4 Hct 41.6 MCV 87 MCH 30.2 MCHC 34.6 RDW Std Deviation 39.7 Plt Count 247 Neut % (Auto) 69 Lymph % (Auto) 22 [place] % (Auto) 5 Eos % (Auto) 3 Baso % (Auto) 0 Neut # (Auto) 7.8 H Lymph # (Auto) 2.5 [place] # (Auto) 0.5 Eos # (Auto) 0.3 Baso # (Auto) 0.0 Immature Gran # (Auto) 0.05 H Absolute Nucleated RBC 0.00 Immature Gran % 0 Nucleated RBC % 0 Sodium 138 Potassium 3.6 Chloride 98 Carbon Dioxide 30.4 Anion Gap 10 BUN 18 Creatinine 1.1 Estim Creat Clear Calc 90.7 eGFR > 60 BUN/Creatinine Ratio 16 Glucose 165 H D Calculated Osmolality 281 Calcium 9.7 Corrected Calcium 9.7 Magnesium 2.4 Total Bilirubin 0.6 AST 20 ALT 20 Alkaline Phosphatase 70 Total Protein 6.4 Albumin 4.2 Globulin 2.2 L Albumin/Globulin Ratio 1.9 Assessment & Plan Assessment and plan (1) Acute CVA (cerebrovascular accident): Status: Acute Assessment and plan: continue with Eliquis, ASA 81 MG, statin, BP control Intense OT/ST/PT. [facility]. (2) Hypertension: Status: Chronic Assessment and plan: Continue current meds (3) Seizure: Status: Acute Assessment and plan: D/C jos[facility] as the workup is negative and no recurrent witnessed episodes.
[2024-08-27] VITALS (14 sets, daily range): BP systolic 111–126; BP diastolic 79–98; PULSE 66–90; RESP 16–20; TEMP 36–37; O2SAT 96–99; BMI 35.6
[2024-08-27] MEDS: DILTIAZEM 30 MG TABLET GT ×4 (05:31→20:39)
[2024-08-27 06:22] LABS: Basophils # (Auto) 0.0 Thou/mm3 (0.0-0.2); Basophils % (Auto) 0 % (0-2.5); Eosinophils # (Auto) 0.4 Thou/mm3 (0.0-0.5); Eosinophils % (Auto) 4 % (0-10); Hematocrit 38.1 % (41.0-53.0); Hemoglobin 13.4 g/dL (13.5-16.0); Immature Granulocytes Auto 0.03 Thou/mm3 (0.00-0.00); Lymphocytes # (Auto) 1.7 Thou/mm3 (1.0-4.8); Lymphocytes % (Auto) 18 % (10-50); Mean Corpuscular HGB Conc 35.2 g/dl (31.0-37.0); Mean Corpuscular Hemoglobin 30.5 pg (25.0-35.0); Mean Corpuscular Volume 87 fL (80-100); Monocytes # (Auto) 0.5 Thou/mm3 (0.0-0.8); Monocytes % (Auto) 5 % (0-12); Neutrophils # (Auto) 6.8 Thou/mm3 (1.8-7.7); Neutrophils % (Auto) 73 % (37-80); Nucleated Red Blood Cell # 0.00 Thou/mm3 (0.00-0.00); Nucleated Red Blood Cell % 0 /100 WBC (0); Platelet Count 273 Thou/mm3 (140-440); RDW Standard Deviation 39.8 fL (35.1-43.9); Red Blood Count 4.40 Miln/mm3 (4.50-5.90); White Blood Count 9.4 Thou/mm3 (3.8-10.6)
[2024-08-27 06:44] LABS: Alanine Aminotransferase 19 U/L (10-49); Albumin, Serum 3.7 gm/dL (3.5-5.0); Albumin/Globulin Ratio 1.5 (1.2-2.2); Alkaline Phosphatase 67 U/L (46-116); Anion Gap 7 (7-16); Aspartate Amino Transferase 17 U/L (0-34); BUN/Creatinine Ratio 15 Ratio (12-20); Bilirubin,Total 0.4 mg/dL (0.3-1.2); Blood Urea Nitrogen 16 mg/dL (9-23); Calcium 9.2 mg/dL (8.3-10.6); Calcium (Corrected) 9.4 mg/dL (8.5-10.1); Carbon Dioxide 32.7 mMol/L (20.0-31.0); Chloride 101 mMol/L (98-107); Creatinine (Component) 1.1 mg/dL (0.6-1.3); Estimated Creatinine Clearance 88.9 mL/min (>60); Globulin 2.4 gm/dL (2.3-3.5); Glucose 118 mg/dL (74-106); Magnesium 2.3 mg/dL (1.6-2.6); Osmolality,Calculated 283 (275-295); Potassium 3.9 mMol/L (3.4-5.1); Sodium 141 mMol/L (136-145); Total Protein 6.1 gm/dL (5.7-8.2); eGFR > 60 See Note
[2024-08-27] MEDS: APIXABAN 2.5 MG TABLET 5 MG PO ×2 (09:11→20:39)
[2024-08-27] MEDS: ASPIRIN 81 MG CHEW GT (09:11)
--- NOTE | 2024-08-27 09:27 | PC.SS ---
Addendum entered by Carmen Valenzuela 08/27/24 15:59: Per rounding meeting, pt may possibly d/c on Thursday due to acute placement pending at [place]. SS to f/u on Thursday for acceptance. Original Note: Per rounding note: pt is ready for d/c and is medically cleared, but waiting on placement approval. SS to f/u on Thursday for d/c plan to subacute.
--- NOTE | 2024-08-27 10:37 | PD.RESPRO ---
Documentation for date of: 08/27/24 Subjective Subjective Interval history: No acute overnight events. Seen and examined at bedside and is alert, following commands, and appears to be resting comfortably and tolerating tube feeds well. At this time, continues to pend authorization but waiting on placement approval and will likely have an answer on Thursday. Otherwise, vital signs stable, CBC unremarkable, chem panel also unremarkable. Will continue with aspirin, eliquis, and atorvastatin as well as diltiazem for atrial fibrillation. Exam Vital Signs Temp Pulse Resp BP Pulse Ox O2 Del Method O2 Flow Rate 97.2 F 82 16 115/92 H 98 Blow-by 8 08/27/24 08:00 08/27/24 08:37 08/27/24 08:37 08/27/24 08:00 08/27/24 08:37 08/27/24 08:00 08/27/24 08:37 FiO2 40 08/27/24 08:37 Narrative Exam General: alert, not speaking at bedside but shows understanding, no acute distress, able to speak full sentences HEENT: trach in place, NC/AT, mucous membranes moist, bilateral sclera anicteric Cardiovascular: regular rate and rhythm, S1/S2 present, no murmurs appreciated Pulmonary: clear to auscultation bilaterally, no rales/rhonchi/wheezes Abdominal: PEG in place, soft, non-tender, non-distended, no rebound/guarding, normal bowel sounds present Musculoskeletal: normal ROM, no peripheral edema Skin: warm and dry, intact, no rashes Neuro: - Alert, follows commands, not able to verbalize - Able to move right upper and lower extremities without much difficulty - Can wiggle fingers and toes in left upper and lower extremities, respectively Objective Labs 08/28/24 05:21 08/28/24 05:21 Labs: Laboratory Results - last 24 hr 08/27/24 05:10 WBC 9.4 RBC 4.40 L Hgb 13.4 L Hct 38.1 L MCV 87 MCH 30.5 MCHC 35.2 RDW Std Deviation 39.8 Plt Count 273 Neut % (Auto) 73 Lymph % (Auto) 18 [place] % (Auto) 5 Eos % (Auto) 4 Baso % (Auto) 0 Neut # (Auto) 6.8 Lymph # (Auto) 1.7 [place] # (Auto) 0.5 Eos # (Auto) 0.4 Baso # (Auto) 0.0 Immature Gran # (Auto) 0.03 H Absolute Nucleated RBC 0.00 Immature Gran % 0 Nucleated RBC % 0 Sodium 141 Potassium 3.9 Chloride 101 Carbon Dioxide 32.7 H Anion Gap 7 BUN 16 Creatinine 1.1 Estim Creat Clear Calc 88.9 eGFR > 60 BUN/Creatinine Ratio 15 Glucose 118 H Calculated Osmolality 283 Calcium 9.2 Corrected Calcium 9.4 Magnesium 2.3 Total Bilirubin 0.4 AST 17 ALT 19 Alkaline Phosphatase 67 Total Protein 6.1 Albumin 3.7 D Globulin 2.4 Albumin/Globulin Ratio 1.5 Quality Measures Quality Measures VTE prophylaxis Assessment & Plan Assessment Current Active Medications: Generic Name Dose Route Start Last Admin Trade Name Freq PRN Reason Stop Dose Admin Acetaminophen 650 mg 08/24/24 23:12 Acetaminophen 325 Mg Tablet PO 09/23/24 23:11 Q6H PRN Fever >100.4 Hydrocodone Bitart/Acetaminophen 1 tab 08/24/24 23:12 08/26/24 00:41 Hydrocodone/Apap 5/325 Tablet PO 08/29/24 23:11 1 tab Q4HR PRN Administration PAIN SCALE 4-6 (Moderate Apixaban 5 mg 08/25/24 09:00 08/27/24 09:11 Apixaban 2.5 Mg Tablet PO 09/24/24 08:59 5 mg BID BRADFORD Administration Aspirin 81 mg 08/26/24 09:15 08/27/24 09:11 Aspirin 81 Mg Chew GT 09/25/24 09:14 81 mg QDAY BRADFORD Administration Atorvastatin Calcium 80 mg 08/25/24 21:00 08/26/24 21:19 Atorvastatin Calcium 20 Mg Tablet GT 09/24/24 20:59 80 mg HS BRADFORD Administration Diltiazem HCl 30 mg 08/25/24 06:00 08/27/24 05:31 Diltiazem 30 Mg Tablet GT 09/24/24 05:59 30 mg QID BRADFORD Administration Hydroxyzine HCl 10 mg 08/24/24 23:17 Hydroxyzine Hcl 10 Mg Tablet PO 09/23/24 23:16 Q6HR PRN ANXIETY Ondansetron HCl 4 mg 08/24/24 23:12 Ondansetron Inj 2 Mg/Ml Inj 2 Ml IVP 09/23/24 23:11 Q6H PRN NAUSEA OR VOMITING Protocol Sennosides 1 tab 08/25/24 09:00 08/27/24 09:11 Senna Tablet PO 09/24/24 08:59 1 tab QDAY BRADFORD Administration Protocol Plan Adal Cesar is a 48-year-old male with past medical history of right ganglia hemorrhagic stroke s/p craniotomy and hypertension who was transferred back on 08/24/2024 from [facility] where patient underwent mechanical thrombectomy. 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 Had tracheostomy and PEG tube placement due to inability to be weaned off mechanical ventilation. ? Neurology following, appreciate recommendations ? Aspirin 81 mg daily, atorvastatin 80 mg at bedtime ? Neurochecks daily ? Jevity tube feedings ? Pending placement at subacute vs LTAC #A-fib with RVR Went into a-fib with RVR during stay at [facility]. [id number] score: 3, indicating 3.2% risk of stroke per year. HAS-BLED score 1, low risk of major bleed. ? Eliquis 5 mg twice daily ? Cardizem 30 mg every 6 hours ? Continue monitoring on telemetry Hospital management: Disposition: pending placement Fluids: Not indicated Diet: Jevity tube feedings Lines: PIV, PEG tube DVT prophylaxis: Eliquis 5 mg twice daily GI prophylaxis: Not indicated CODE STATUS: full code ----- Plan discussed with attending physician Dr. Pamela Moore MD PGY-1 Internal Medicine Attending Provider Attestation/Addendum I have examined the patient, reviewed labs and imaging findings, discussed the case with the resident(s), and reviewed entered orders. I agree with the plan of care as outlined in this note, with these additional summaries/recommendations: Patient and seen at bedside. No acute overnight events. Patient continues to be medically cleared for discharge and pending placement. Continue blow-by and wean as tolerated. Patient tolerating tube feeds and free water flushes. Continue eliquis, aspirin, atorvastatin, and diltiazem. Patient and updated on the plan and in agreement. All questions answered to satisfaction. Please see residents note for additional details and management. Dr. Pamela MD
[2024-08-27] MEDS: POTASSIUM CHLORIDE 10% 20 MEQ/15 ML UDC GT (10:54)
[2024-08-27] MEDS: ATORVASTATIN CALCIUM 20 MG TABLET 80 MG GT (20:39)
[2024-08-28] VITALS (12 sets, daily range): BP systolic 112–129; BP diastolic 84–102; PULSE 68–103; RESP 16–19; TEMP 36.2–36.6; O2SAT 96–99; BMI 35.6
--- NOTE | 2024-08-28 | VVPN_ITS ---
Telemedicine visit statement This visit was conducted with the use of interactive audio and video telecommunications system that permits real time communication between the patient and the provider. Patient's verbal consent for virtual visit was obtained on 08/28/24 at 0000. Documentation for date of: 08/28/24 Subjective Subjective Interval history: Patient is in telemetry, no changes reported. Virtual exam Vital Signs Temp Pulse Resp BP Pulse Ox O2 Del Method O2 Flow Rate 97.8 F 78 18 126/85 H 98 Blow-by 8 08/27/24 23:52 08/27/24 23:52 08/27/24 23:52 08/27/24 23:52 08/27/24 23:52 08/27/24 23:52 08/27/24 23:52 FiO2 40 08/27/24 23:52 Objective Labs 08/27/24 05:10 08/27/24 05:10 Labs: Laboratory Results - last 24 hr 08/27/24 05:10 WBC 9.4 RBC 4.40 L Hgb 13.4 L Hct 38.1 L MCV 87 MCH 30.5 MCHC 35.2 RDW Std Deviation 39.8 Plt Count 273 Neut % (Auto) 73 Lymph % (Auto) 18 [place] % (Auto) 5 Eos % (Auto) 4 Baso % (Auto) 0 Neut # (Auto) 6.8 Lymph # (Auto) 1.7 [place] # (Auto) 0.5 Eos # (Auto) 0.4 Baso # (Auto) 0.0 Immature Gran # (Auto) 0.03 H Absolute Nucleated RBC 0.00 Immature Gran % 0 Nucleated RBC % 0 Sodium 141 Potassium 3.9 Chloride 101 Carbon Dioxide 32.7 H Anion Gap 7 BUN 16 Creatinine 1.1 Estim Creat Clear Calc 88.9 eGFR > 60 BUN/Creatinine Ratio 15 Glucose 118 H Calculated Osmolality 283 Calcium 9.2 Corrected Calcium 9.4 Magnesium 2.3 Total Bilirubin 0.4 AST 17 ALT 19 Alkaline Phosphatase 67 Total Protein 6.1 Albumin 3.7 D Globulin 2.4 Albumin/Globulin Ratio 1.5 Assessment & Plan Problem List (1) Acute CVA (cerebrovascular accident): Status: Acute Assessment and plan: stable with residual left UE more than LE weakness continue with asa and eliquis with stain D/C to rehab in [place]. (2) Hypertension: Status: Chronic Assessment and plan: under control
[2024-08-28] MEDS: DILTIAZEM 30 MG TABLET GT ×4 (05:08→20:47)
[2024-08-28 06:09] LABS: Basophils # (Auto) 0.0 Thou/mm3 (0.0-0.2); Basophils % (Auto) 0 % (0-2.5); Eosinophils # (Auto) 0.3 Thou/mm3 (0.0-0.5); Eosinophils % (Auto) 3 % (0-10); Hematocrit 39.2 % (41.0-53.0); Hemoglobin 13.9 g/dL (13.5-16.0); Immature Granulocytes Auto 0.04 Thou/mm3 (0.00-0.00); Lymphocytes # (Auto) 1.4 Thou/mm3 (1.0-4.8); Lymphocytes % (Auto) 11 % (10-50); Mean Corpuscular HGB Conc 35.5 g/dl (31.0-37.0); Mean Corpuscular Hemoglobin 30.2 pg (25.0-35.0); Mean Corpuscular Volume 85 fL (80-100); Monocytes # (Auto) 0.7 Thou/mm3 (0.0-0.8); Monocytes % (Auto) 5 % (0-12); Neutrophils # (Auto) 10.3 Thou/mm3 (1.8-7.7); Neutrophils % (Auto) 81 % (37-80); Nucleated Red Blood Cell # 0.00 Thou/mm3 (0.00-0.00); Nucleated Red Blood Cell % 0 /100 WBC (0); Platelet Count 231 Thou/mm3 (140-440); RDW Standard Deviation 38.3 fL (35.1-43.9); Red Blood Count 4.61 Miln/mm3 (4.50-5.90); White Blood Count 12.8 Thou/mm3 (3.8-10.6)
[2024-08-28 06:46] LABS: Anion Gap 6 (7-16); BUN/Creatinine Ratio 12 Ratio (12-20); Blood Urea Nitrogen 13 mg/dL (9-23); Calcium 9.2 mg/dL (8.3-10.6); Carbon Dioxide 31.1 mMol/L (20.0-31.0); Chloride 105 mMol/L (98-107); Creatinine (Component) 1.1 mg/dL (0.6-1.3); Estimated Creatinine Clearance 87.3 mL/min (>60); Glucose 135 mg/dL (74-106); Magnesium 2.2 mg/dL (1.6-2.6); Osmolality,Calculated 285 (275-295); Potassium 4.1 mMol/L (3.4-5.1); Sodium 142 mMol/L (136-145); eGFR > 60 See Note
[2024-08-28] MEDS: ASPIRIN 81 MG CHEW GT (09:10)
[2024-08-28] MEDS: APIXABAN 2.5 MG TABLET 5 MG PO ×2 (09:10→20:47)
--- NOTE | 2024-08-28 11:08 | PD.RESPRO ---
Documentation for date of: 08/28/24 Subjective Subjective Interval history: Patient was seen and examined bedside. No acute overnight events. Patient is resting in bed, tolerating tube feeds well. Still waiting for insurance authorization for placement. Plan is to discharge patient either subacute versus LTAC. Medically patient has been cleared, pending social service/placement. Will follow-up with the social workers. Most likely patient will be discharged on Thursday. For now continue current management. Exam Vital Signs Temp Pulse Resp BP Pulse Ox O2 Del Method O2 Flow Rate 97.7 F 74 19 123/93 H 99 Blow-by 8 08/28/24 08:00 08/28/24 08:00 08/28/24 08:00 08/28/24 08:00 08/28/24 08:00 08/28/24 08:00 08/28/24 08:00 FiO2 40 08/28/24 04:00 Narrative Exam General: alert, not speaking at bedside but shows understanding, no acute distress, able to speak full sentences HEENT: trach in place, NC/AT, mucous membranes moist, bilateral sclera anicteric Cardiovascular: regular rate and rhythm, S1/S2 present, no murmurs appreciated Pulmonary: clear to auscultation bilaterally, no rales/rhonchi/wheezes Abdominal: PEG in place, soft, non-tender, non-distended, no rebound/guarding, normal bowel sounds present Musculoskeletal: normal ROM, no peripheral edema Skin: warm and dry, intact, no rashes Neuro:Alert, follows commands, not able to verbalize.Able to move right upper and lower extremities without much difficulty.Can wiggle fingers and toes in left upper and lower extremities, respectively Objective Labs 08/29/24 05:37 08/29/24 05:37 Labs: Laboratory Results - last 24 hr 08/28/24 05:21 WBC 12.8 H RBC 4.61 Hgb 13.9 Hct 39.2 L MCV 85 MCH 30.2 MCHC 35.5 RDW Std Deviation 38.3 Plt Count 231 D Neut % (Auto) 81 H Lymph % (Auto) 11 [place] % (Auto) 5 Eos % (Auto) 3 Baso % (Auto) 0 Neut # (Auto) 10.3 H Lymph # (Auto) 1.4 [place] # (Auto) 0.7 Eos # (Auto) 0.3 Baso # (Auto) 0.0 Immature Gran # (Auto) 0.04 H Absolute Nucleated RBC 0.00 Immature Gran % 0 Nucleated RBC % 0 Sodium 142 Potassium 4.1 Chloride 105 Carbon Dioxide 31.1 H Anion Gap 6 L BUN 13 Creatinine 1.1 Estim Creat Clear Calc 87.3 eGFR > 60 BUN/Creatinine Ratio 12 Glucose 135 H Calculated Osmolality 285 Calcium 9.2 Magnesium 2.2 Quality Measures Quality Measures VTE prophylaxis Assessment & Plan Assessment Current Active Medications: Generic Name Dose Route Start Last Admin Trade Name Freq PRN Reason Stop Dose Admin Acetaminophen 650 mg 08/24/24 23:12 Acetaminophen 325 Mg Tablet PO 09/23/24 23:11 Q6H PRN Fever >100.4 Hydrocodone Bitart/Acetaminophen 1 tab 08/24/24 23:12 08/26/24 00:41 Hydrocodone/Apap 5/325 Tablet PO 08/29/24 23:11 1 tab Q4HR PRN Administration PAIN SCALE 4-6 (Moderate Apixaban 5 mg 08/25/24 09:00 08/28/24 09:10 Apixaban 2.5 Mg Tablet PO 09/24/24 08:59 5 mg BID BRADFORD Administration Aspirin 81 mg 08/26/24 09:15 08/28/24 09:10 Aspirin 81 Mg Chew GT 09/25/24 09:14 81 mg QDAY BRADFORD Administration Atorvastatin Calcium 80 mg 08/25/24 21:00 08/27/24 20:39 Atorvastatin Calcium 20 Mg Tablet GT 09/24/24 20:59 80 mg HS BRADFORD Administration Diltiazem HCl 30 mg 08/25/24 06:00 08/28/24 05:08 Diltiazem 30 Mg Tablet GT 09/24/24 05:59 30 mg QID BRADFORD Administration Hydroxyzine HCl 10 mg 08/24/24 23:17 Hydroxyzine Hcl 10 Mg Tablet PO 09/23/24 23:16 Q6HR PRN ANXIETY Ondansetron HCl 4 mg 08/24/24 23:12 Ondansetron Inj 2 Mg/Ml Inj 2 Ml IVP 09/23/24 23:11 Q6H PRN NAUSEA OR VOMITING Protocol Sennosides 1 tab 08/25/24 09:00 08/28/24 09:10 Senna Tablet PO 09/24/24 08:59 1 tab QDAY RBADFORD Administration Protocol Plan Adal Cesar is a 48-year-old male with past medical history of right ganglia hemorrhagic stroke s/p craniotomy and hypertension who was transferred back on 08/24/2024 from [facility] where patient underwent mechanical thrombectomy. 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 Had tracheostomy and PEG tube placement due to inability to be weaned off mechanical ventilation. ? Neurology following, appreciate recommendations ? Aspirin 81 mg daily, atorvastatin 80 mg at bedtime ? Neurochecks daily ? Jevity tube feedings ? Pending placement at subacute vs LTAC #A-fib with RVR Went into a-fib with RVR during stay at [facility]. [id number] score: 3, indicating 3.2% risk of stroke per year. HAS-BLED score 1, low risk of major bleed. ? Eliquis 5 mg twice daily ? Cardizem 30 mg every 6 hours ? Continue monitoring on telemetry Hospital management: Disposition: pending placement Fluids: Not indicated Diet: Jevity tube feedings Lines: PIV, PEG tube DVT prophylaxis: Eliquis 5 mg twice daily GI prophylaxis: Not indicated CODE STATUS: full code Patient care was discussed with attending physician Dr. Pamela Martin MD PGY-2 Attending Provider Attestation/Addendum I have examined the patient, reviewed labs and imaging findings, discussed the case with the resident(s), and reviewed entered orders. I agree with the plan of care as outlined in this note, with these additional summaries/recommendations: Patient seen at bedside. No acute overnight events. Patient continues to be medically cleared for discharge and pending placement. Continue blow-by and wean as tolerated. Patient tolerating tube feeds and free water flushes. Continue eliquis, aspirin, atorvastatin, and diltiazem. Patient and updated on the plan and in agreement. All questions answered to satisfaction. Please see residents note for additional details and management. Dr. Pamela MD
[2024-08-28] MEDS: ATORVASTATIN CALCIUM 20 MG TABLET 80 MG GT (20:47)
[2024-08-29] VITALS (12 sets, daily range): BP systolic 117–143; BP diastolic 79–91; PULSE 62–96; RESP 14–25; TEMP 36.1–36.7; O2SAT 96–100; BMI 35.6
[2024-08-29] MEDS: DILTIAZEM 30 MG TABLET GT ×4 (05:27→20:56)
[2024-08-29 06:18] LABS: Basophils # (Auto) 0.0 Thou/mm3 (0.0-0.2); Basophils % (Auto) 0 % (0-2.5); Eosinophils # (Auto) 0.3 Thou/mm3 (0.0-0.5); Eosinophils % (Auto) 3 % (0-10); Hematocrit 40.5 % (41.0-53.0); Hemoglobin 13.9 g/dL (13.5-16.0); Immature Granulocytes Auto 0.04 Thou/mm3 (0.00-0.00); Lymphocytes # (Auto) 1.1 Thou/mm3 (1.0-4.8); Lymphocytes % (Auto) 9 % (10-50); Mean Corpuscular HGB Conc 34.3 g/dl (31.0-37.0); Mean Corpuscular Hemoglobin 30.5 pg (25.0-35.0); Mean Corpuscular Volume 89 fL (80-100); Monocytes # (Auto) 0.6 Thou/mm3 (0.0-0.8); Monocytes % (Auto) 5 % (0-12); Neutrophils # (Auto) 10.1 Thou/mm3 (1.8-7.7); Neutrophils % (Auto) 83 % (37-80); Nucleated Red Blood Cell # 0.00 Thou/mm3 (0.00-0.00); Nucleated Red Blood Cell % 0 /100 WBC (0); Platelet Count 233 Thou/mm3 (140-440); RDW Standard Deviation 41.0 fL (35.1-43.9); Red Blood Count 4.56 Miln/mm3 (4.50-5.90); White Blood Count 12.1 Thou/mm3 (3.8-10.6)
[2024-08-29 06:47] LABS: Anion Gap 5 (7-16); BUN/Creatinine Ratio 13 Ratio (12-20); Blood Urea Nitrogen 13 mg/dL (9-23); Calcium 9.2 mg/dL (8.3-10.6); Carbon Dioxide 32.5 mMol/L (20.0-31.0); Chloride 105 mMol/L (98-107); Creatinine (Component) 1.0 mg/dL (0.6-1.3); Estimated Creatinine Clearance 96.0 mL/min (>60); Glucose 123 mg/dL (74-106); Magnesium 2.2 mg/dL (1.6-2.6); Osmolality,Calculated 284 (275-295); Potassium 3.9 mMol/L (3.4-5.1); Sodium 142 mMol/L (136-145); eGFR > 60 See Note
--- NOTE | 2024-08-29 09:18 | PC.SS ---
Addendum entered by Neeta Pritchard 08/29/24 13:11: SS follow up note; SS has been getting transferred multiple times by patient's insurance, however SS has been unsuccessful. SS contacted [facility] to help assist with authorization. SS will stand by for further needs. Addendum entered by Neeta Pritchard 08/29/24 12:36: SS follow up note; SS was contacted by Najma Collier from [facility], she sent form for SS to fill out, SS filled out form and sent right back. SS also sent PASSR. SS contacted patient's insurance to initiate the auth, as requested by Najma Collier. SS has been on the phone with Insurance for fourty min. Addendum entered by Neeta Pritchard 08/29/24 10:02: SS follow up note; SS attempted to contact Michaela, MARKO left Voicemail with call back number. Original Note: SS follow up note; SS contacted Michaela from [facility], . SS left voicemail with SS call back number.
[2024-08-29] MEDS: ASPIRIN 81 MG CHEW GT (09:52)
[2024-08-29] MEDS: APIXABAN 2.5 MG TABLET 5 MG PO ×2 (09:52→20:56)
[2024-08-29] MEDS: ACETAMINOPHEN 325 MG TABLET 650 MG PO (09:54)
--- NOTE | 2024-08-29 12:03 | PD.RESPRO ---
Documentation for date of: 08/29/24 Subjective Subjective Interval history: No acute overnight events. Seen and examined at bedside with son present and patient able to move left upper extremity much more compared to yesterday. Continues to be on blow-by saturating 99% and breathing comfortably. At this time currently authorization for placement at [facility]. Otherwise, vital signs stable CBC continues to show persistent mild leukocytosis but no reported fevers and chem panel unremarkable. Exam Vital Signs Temp Pulse Resp BP Pulse Ox O2 Del Method O2 Flow Rate 98.1 F 96 14 143/86 H 100 Blow-by 8 08/29/24 08:00 08/29/24 11:56 08/29/24 08:00 08/29/24 11:56 08/29/24 08:00 08/29/24 08:00 08/29/24 08:00 FiO2 40 08/29/24 08:00 Narrative Exam General: alert, not speaking at bedside but shows understanding, no acute distress, able to speak full sentences HEENT: trach in place, NC/AT, mucous membranes moist, bilateral sclera anicteric Cardiovascular: regular rate and rhythm, S1/S2 present, no murmurs appreciated Pulmonary: clear to auscultation bilaterally, no rales/rhonchi/wheezes Abdominal: PEG in place, soft, non-tender, non-distended, no rebound/guarding, normal bowel sounds present Musculoskeletal: normal ROM, no peripheral edema Skin: warm and dry, intact, no rashes Neuro: - Alert, follows commands, not able to verbalize - Able to move right upper and lower extremities without much difficulty - Can wiggle fingers and toes in left upper and lower extremities, respectively with improvement in upper extremity Objective Labs 08/29/24 05:37 08/29/24 05:37 Labs: Laboratory Results - last 24 hr 08/29/24 05:37 WBC 12.1 H RBC 4.56 Hgb 13.9 Hct 40.5 L MCV 89 MCH 30.5 MCHC 34.3 RDW Std Deviation 41.0 Plt Count 233 Neut % (Auto) 83 H Lymph % (Auto) 9 L [place] % (Auto) 5 Eos % (Auto) 3 Baso % (Auto) 0 Neut # (Auto) 10.1 H Lymph # (Auto) 1.1 [place] # (Auto) 0.6 Eos # (Auto) 0.3 Baso # (Auto) 0.0 Immature Gran # (Auto) 0.04 H Absolute Nucleated RBC 0.00 Immature Gran % 0 Nucleated RBC % 0 Sodium 142 Potassium 3.9 Chloride 105 Carbon Dioxide 32.5 H Anion Gap 5 L BUN 13 Creatinine 1.0 Estim Creat Clear Calc 96.0 eGFR > 60 BUN/Creatinine Ratio 13 Glucose 123 H Calculated Osmolality 284 Calcium 9.2 Magnesium 2.2 Quality Measures Quality Measures VTE prophylaxis Assessment & Plan Assessment Current Active Medications: Generic Name Dose Route Start Last Admin Trade Name Freq PRN Reason Stop Dose Admin Acetaminophen 650 mg 08/24/24 23:12 08/29/24 09:54 Acetaminophen 325 Mg Tablet PO 09/23/24 23:11 650 mg Q6H PRN Administration Fever >100.4 Hydrocodone Bitart/Acetaminophen 1 tab 08/24/24 23:12 08/26/24 00:41 Hydrocodone/Apap 5/325 Tablet PO 08/29/24 23:11 1 tab Q4HR PRN Administration PAIN SCALE 4-6 (Moderate Apixaban 5 mg 08/25/24 09:00 08/29/24 09:52 Apixaban 2.5 Mg Tablet PO 09/24/24 08:59 5 mg BID BRADFORD Administration Aspirin 81 mg 08/26/24 09:15 08/29/24 09:52 Aspirin 81 Mg Chew GT 09/25/24 09:14 81 mg QDAY BRADFORD Administration Atorvastatin Calcium 80 mg 08/25/24 21:00 08/28/24 20:47 Atorvastatin Calcium 20 Mg Tablet GT 09/24/24 20:59 80 mg HS BRADFORD Administration Diltiazem HCl 30 mg 08/25/24 06:00 08/29/24 11:56 Diltiazem 30 Mg Tablet GT 09/24/24 05:59 30 mg QID BRADFORD Administration Hydroxyzine HCl 10 mg 08/24/24 23:17 Hydroxyzine Hcl 10 Mg Tablet PO 09/23/24 23:16 Q6HR PRN ANXIETY Ondansetron HCl 4 mg 08/24/24 23:12 Ondansetron Inj 2 Mg/Ml Inj 2 Ml IVP 09/23/24 23:11 Q6H PRN NAUSEA OR VOMITING Protocol Sennosides 1 tab 08/25/24 09:00 08/29/24 09:52 Senna Tablet PO 09/24/24 08:59 1 tab QDAY BRADFORD Administration Protocol Plan Adal Cesar is a 48-year-old male with past medical history of right ganglia hemorrhagic stroke s/p craniotomy and hypertension who was transferred back on 08/24/2024 from [facility] where patient underwent mechanical thrombectomy. 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 Had tracheostomy and PEG tube placement due to inability to be weaned off mechanical ventilation. ? Neurology following, appreciate recommendations ? Aspirin 81 mg daily, atorvastatin 80 mg at bedtime ? Neurochecks daily ? Jevity tube feedings ? Pending placement at subacute vs LTAC #A-fib with RVR Went into a-fib with RVR during stay at [facility]. [id number] score: 3, indicating 3.2% risk of stroke per year. HAS-BLED score 1, low risk of major bleed. ? Eliquis 5 mg twice daily ? Cardizem 30 mg every 6 hours ? Continue monitoring on telemetry Hospital management: Disposition: pending placement Fluids: Not indicated Diet: Jevity tube feedings Lines: PIV, PEG tube DVT prophylaxis: Eliquis 5 mg twice daily GI prophylaxis: Not indicated CODE STATUS: full code ----- Plan discussed with attending physician Dr. Pamela Moore MD PGY-1 Internal Medicine Attending Provider Attestation/Addendum I have examined the patient, reviewed labs and imaging findings, discussed the case with the resident(s), and reviewed entered orders. I agree with the plan of care as outlined in this note, with these additional summaries/recommendations: Patient & son seen at bedside. No acute overnight events. Today patient was actually able to lift his left hand which is significant improvement. Patient continues to be medically cleared for discharge and pending placement. Continue blow-by and wean as tolerated. Patient tolerating tube feeds and free water flushes. Continue eliquis, aspirin, atorvastatin, and diltiazem. Patient and son updated on the plan and in agreement. All questions answered to satisfaction. Please see residents note for additional details and management. Dr. Pamela MD
[2024-08-29] MEDS: ATORVASTATIN CALCIUM 20 MG TABLET 80 MG GT (20:56)
--- NOTE | 2024-08-29 23:45 | ESPR_ITS ---
Documentation for date of: 08/29/24 Subjective Subjective Interval history: Patient was seen in telemetry today with his family at the bedside. Left UE weakness remains unchanged. He is trached and on trach collar. Exam - Neurology Vital Signs Temp Pulse Resp BP Pulse Ox O2 Del Method O2 Flow Rate 97.2 F 80 20 120/87 H 96 Blow-by 8 08/29/24 20:00 08/29/24 22:22 08/29/24 22:22 08/29/24 20:56 08/29/24 22:22 08/29/24 20:00 08/29/24 22:22 FiO2 40 08/29/24 22:22 Narrative Exam GENERAL APPEARANCE: Well-developed, obese built male in no acute distress. HEENT: Normocephalic, atraumatic, extraocular movements intact. Pupils: Equal reacting to light and accommodation NECK: Supple, no JVD or bruits. CARDIOVASULAR: Heart: S1, S2 heard, regular without S3-S4 or murmur no rubs or gallops. LUNGS/CHEST: Clear to auscultation bilaterally. No rails, rhonchi, or wheezing. Normal inspection. ABDOMEN: Soft, nontender, with normal bowel sounds. No pulsatile masses. No rebound, rigidity, or guarding. Normal inspection and palpation. EXTREMITIES: Normal inspection and palpation. No edema, clubbing or cyanosis. SKIN: Warm and dry without rashes. Normal inspection. MUSCULOSKELETAL: No cervical, thoracic, lumbar or midline bony tenderness. Normal inspection. NEURO: Alert, awake . Cranial nerves: II through XII grossly intact. Speech and language: limited. Motor system: Tone and bulk: Normal: Strength: moves all extremities with the exception of the left UE. Pronator drift noted. Deep tendon reflexes: 2+ bilaterally symmetrical. Plantar reflex: Downgoing bilaterally. Sensory system: Intact to all modalities of sensation bilaterally. Coordination: Intact to [id number] and [id number] test bilaterally. No ataxia, no dysmetria, or dysdiadochokinesia noted. No intention tremors noted. Gait: Not tested. No signs of meningeal irritation noted. PSYCHIATRIC: Flat affect, emotional lability noted. Objective Labs 08/29/24 05:37 08/29/24 05:37 Labs: Laboratory Results - last 24 hr 08/29/24 05:37 WBC 12.1 H RBC 4.56 Hgb 13.9 Hct 40.5 L MCV 89 MCH 30.5 MCHC 34.3 RDW Std Deviation 41.0 Plt Count 233 Neut % (Auto) 83 H Lymph % (Auto) 9 L [place] % (Auto) 5 Eos % (Auto) 3 Baso % (Auto) 0 Neut # (Auto) 10.1 H Lymph # (Auto) 1.1 [place] # (Auto) 0.6 Eos # (Auto) 0.3 Baso # (Auto) 0.0 Immature Gran # (Auto) 0.04 H Absolute Nucleated RBC 0.00 Immature Gran % 0 Nucleated RBC % 0 Sodium 142 Potassium 3.9 Chloride 105 Carbon Dioxide 32.5 H Anion Gap 5 L BUN 13 Creatinine 1.0 Estim Creat Clear Calc 96.0 eGFR > 60 BUN/Creatinine Ratio 13 Glucose 123 H Calculated Osmolality 284 Calcium 9.2 Magnesium 2.2 Assessment & Plan Assessment and plan (1) Acute CVA (cerebrovascular accident): Status: Acute Assessment and plan: continue with Eliquis, ASA 81 MG, statin, BP control Intense OT/ST/PT. [facility]. Waiting for PA from insurance. (2) Hypertension: Status: Chronic Assessment and plan: Continue current meds (3) Seizure: Status: Acute Assessment and plan: D/C lenny as the workup is negative and no recurrent witnessed episodes.
[2024-08-30] VITALS (8 sets, daily range): BP systolic 109–152; BP diastolic 73–107; PULSE 61–92; RESP 13–20; TEMP 36.1–36.7; O2SAT 95–100; BMI 35.6
[2024-08-30] MEDS: DILTIAZEM 30 MG TABLET GT ×2 (05:31→11:36)
[2024-08-30 06:18] LABS: Basophils # (Auto) 0.0 Thou/mm3 (0.0-0.2); Basophils % (Auto) 0 % (0-2.5); Eosinophils # (Auto) 0.5 Thou/mm3 (0.0-0.5); Eosinophils % (Auto) 6 % (0-10); Hematocrit 38.3 % (41.0-53.0); Hemoglobin 13.3 g/dL (13.5-16.0); Immature Granulocytes Auto 0.03 Thou/mm3 (0.00-0.00); Lymphocytes # (Auto) 1.6 Thou/mm3 (1.0-4.8); Lymphocytes % (Auto) 18 % (10-50); Mean Corpuscular HGB Conc 34.7 g/dl (31.0-37.0); Mean Corpuscular Hemoglobin 29.9 pg (25.0-35.0); Mean Corpuscular Volume 86 fL (80-100); Monocytes # (Auto) 0.5 Thou/mm3 (0.0-0.8); Monocytes % (Auto) 6 % (0-12); Neutrophils # (Auto) 5.9 Thou/mm3 (1.8-7.7); Neutrophils % (Auto) 69 % (37-80); Nucleated Red Blood Cell # 0.00 Thou/mm3 (0.00-0.00); Nucleated Red Blood Cell % 0 /100 WBC (0); Platelet Count 217 Thou/mm3 (140-440); RDW Standard Deviation 39.3 fL (35.1-43.9); Red Blood Count 4.45 Miln/mm3 (4.50-5.90); White Blood Count 8.5 Thou/mm3 (3.8-10.6)
[2024-08-30 06:38] LABS: Anion Gap 3 (7-16); BUN/Creatinine Ratio 14 Ratio (12-20); Blood Urea Nitrogen 14 mg/dL (9-23); Calcium 9.1 mg/dL (8.3-10.6); Carbon Dioxide 31.0 mMol/L (20.0-31.0); Chloride 106 mMol/L (98-107); Creatinine (Component) 1.0 mg/dL (0.6-1.3); Estimated Creatinine Clearance 96.0 mL/min (>60); Glucose 128 mg/dL (74-106); Magnesium 2.3 mg/dL (1.6-2.6); Osmolality,Calculated 281 (275-295); Potassium 3.9 mMol/L (3.4-5.1); Sodium 140 mMol/L (136-145); eGFR > 60 See Note
[2024-08-30] MEDS: ASPIRIN 81 MG CHEW GT (08:56)
[2024-08-30] MEDS: APIXABAN 2.5 MG TABLET 5 MG PO (08:56)
--- NOTE | 2024-08-30 09:10 | CHAP ---
Patient was being cared for by a family member. Patient could not speak, but family member was glad that I came to pray with him.
--- NOTE | 2024-08-30 09:20 | PC.SS ---
Addendum entered by Neeta Pritchard 08/30/24 12:35: SS follow up note; SS was contacted by [facility] and new ETA will be for 1330. SS updated Sigrid from [facility] as well as patient's nurse Irasema. Addendum entered by Neeta Pritchard 08/30/24 11:15: SS follow up note; SS was contacted by [facility] and they updated SS with ETA for 12:40. SS updated nurse as well as patient's , Catherine and Najma Collier from [facility]. Original Note: SS follow up note; SS set u transportation with [facility], reference # [id number]. SS notified patient's nurse Irasema. SS also notified Najma Collier from [facility]. SS will update patient's , Jeni.
--- NOTE | 2024-08-30 09:38 | ESDS_ITS ---
<Statement entered by Kj Butler MD - 09/01/24 09:23> I have discussed and was present for the essential components of the history, physical examination, diagnosis, and treatment plan with the resident. I agree with the patient's care as documented by the resident and amended herein by me. Kj Butler MD FACP. Planned Discharge Date 08/30/24 DS: Providers Provider Date of admission: 08/24/24 21:16 Primary care physician: Zeus Santiago MD Admitting Provider: Zeus Santiago MD Attending Provider on Admission: Zeus Santiago MD Consults: 08/24/24 23:18 Referral Registered Dietitian Routine Comment: 08/24/24 23:55 Consult to Neurology / Tele-Neurology Routine Comment: Consulting Provider: Danial Carpenter Attending Provider on DC: Kj Butler MD Discharging Provider: Soto Molina MD DS: Diagnosis Problem List Completed Was Problem List Reviewed/Reconciled?: Yes Hospital Course Hospital Course Hospital course: Patient is a 48-year-old male with a past medical history of 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 During his hospital course at [facility] he developed atrial fibrillation for which he is now stable on eliquis and diltiazem. There was also difficulty weaning from ventilator and is now s/p trach and PEG tube placement. He has left-sided deficits but has shown improvement since returning to [facility] and remains alert, follows commands, and interactive but due to trach has not verbalized. Since his return, he has been medically stable to be discharged to subacute center vs LTAC but has been medically cleared for discharge. Upon discharge, he is to continue aspirin and atorvastatin for his stroke and eliquis and diltiazem for his atrial fibrillation. Otherwise, continue to wean off of trach and strongly recommend to continue to work with physical therapy. Diagnoses during admission: #Bilateral [employer] infarct s/p PEG and tracheostomy #Basilar artery occlusion s/p mechanical thrombectomy on 08/05/2024 #History of right ganglia hemorrhagic stroke s/p craniotomy #A-fib with RVR DC instructions: -Continue with apixaban 5 mg twice daily, aspirin 81 mg daily, and atorvastatin 80 mg daily -Continue with diltiazem 30 mg four times per day for atrial fibrillation -Stopped metoprolol, losartan, hydralazine, and amlodipine -Continue taking all other home medications as prescribed -Continue to wean off of trach collar as tolerated -Follow-up with neurology within 1-2 weeks of discharge -Follow-up with PCP within 1-2 weeks of discharge -If you do not have a PCP, you can follow-up at the [facility] (you can call [phone] to make an appointment) -If you wish to follow-up with Dr. Moore, schedule appointment on Thursday -Return to ED if symptoms worsen or recur Plan of care discussed with attending Dr. Butler. Status at Discharge Overall status at discharge: patient is progressing back to baseline Time Spent with Patient Time attestation: Total time spent providing and/or coordinating discharge services: Time spent: Greater than 30 minutes Exam Vital Signs Temp Pulse Resp BP Pulse Ox O2 Del Method O2 Flow Rate 97.3 F 80 13 116/81 98 Blow-by 8 08/30/24 08:00 08/30/24 08:00 08/30/24 08:00 08/30/24 08:00 08/30/24 08:00 08/30/24 08:00 08/30/24 08:00 FiO2 30 08/30/24 07:21 Narrative Exam General: alert, not speaking at bedside but shows understanding, no acute distress, able to speak full sentences HEENT: trach in place, NC/AT, mucous membranes moist, bilateral sclera anicteric Cardiovascular: regular rate and rhythm, S1/S2 present, no murmurs appreciated Pulmonary: coarse lung sounds, good air movement Abdominal: PEG in place, soft, non-tender, non-distended, no rebound/guarding, normal bowel sounds present Musculoskeletal: normal ROM, no peripheral edema Skin: warm and dry, intact, no rashes Neuro: - Alert, follows commands, not able to verbalize - Able to move right upper and lower extremities without much difficulty - Can wiggle fingers and toes in left upper and lower extremities, respectively with improvement in upper extremity Discharge Plan Plan Patient Disposition: Xfer Skilled Nsg Fac (SNF) Patient condition on transfer: Stable Care Plan Goals: ? Continue with apixaban 5 mg twice daily, aspirin 81 mg daily, and atorvastatin 80 mg daily ? Continue with diltiazem 30 mg four times per day for atrial fibrillation ? Stopped metoprolol, losartan, hydralazine, and amlodipine ? Continue taking all other home medications as prescribed ? Continue to wean off of trach collar as tolerated ? Follow-up with neurology within 1-2 weeks of discharge ? Follow-up with PCP within 1-2 weeks of discharge ? If you do not have a PCP, you can follow-up at the [facility] (you can call [phone] to make an appointment) ? If you wish to follow-up with Dr. Moore, schedule appointment on Thursday afternoon ? Return to ED if symptoms worsen or recur Prescriptions/Referrals Prescriptions/Med Rec: New apixaban 5 mg tablet 5 mg PO BID 30 Days Qty: 60 0RF diltiazem HCl 30 mg Tablet 30 mg G-tube QID 30 Days Qty: 120 0RF aspirin [Children's Aspirin] 81 mg Tablet,Chewable 81 mg G-tube QDAY 30 Days Qty: 30 0RF atorvastatin 80 mg tablet 80 mg feeding tube QDAY 30 Days Qty: 30 0RF Discontinued losartan 50 mg tablet 50 mg PO .once Patient Comments: TOME 1 TABLETA POR V A ORAL DOS VECES AL D A meclizine 25 mg tablet 25 mg PO TID PRN (Reason: dizziness) hydralazine 50 mg tablet 50 mg PO Q6H PRN (Reason: hypertension) Patient Comments: TOME 1 TABLETA POR V A ORAL CUATRO VECES AL D A amlodipine 5 mg tablet 5 mg PO QDAY Patient Comments: TOME 1 TABLETA POR V A ORAL TODOS LOS D Rx Instructions: 5 mg orally; metoprolol tartrate [Lopressor] 50 mg tablet 50 mg PO Q6H PRN (Reason: hold if heart rate is less than 60) Referrals: Zeus Santiago MD [Primary Care Provider] - Patient/Caregiver Discharge Instructions Discharge Activity: as per physical therapy Education Materials: Discharge Instructions for Stroke Print Language: Pashto Stand Alone Forms: [employer] Award Info., Patient Portal Info Letter Discharge Order Discharge Orders: Discharge (Routine); Ordered 08/29/24 Ordered By: Nghia Moore Quality Discharge Quality Measures VTE prophylaxis
--- NOTE | 2024-08-30 11:16 | PC.NURSE ---
Report called to nurse Rosetta at [facility], discharge instructions given and to be sent with pt.
--- NOTE | 2024-08-30 11:46 | PC.NURSE ---
MD notified pts blood pressure is 152/107, MD came to bedside to assess pt, no new orders at this time. Will recheck bp in 10 minutes and pt is still okay to be discharged today per MD.
== END 2024-08-30 13:30 | disposition skilled nursing facility (03) | DRG 310 ==
PROVIDERS: Admitting Provider Student in an Organized Health Care Education/Training Program; PCP Student in an Organized Health Care Education/Training Program; Visit Provider Student in an Organized Health Care Education/Training Program
DX: I48.91 Unspecified atrial fibrillation (principal); I10 Essential (primary) hypertension; Z93.1 Gastrostomy status; Z93.0 Tracheostomy status; R56.9 Unspecified convulsions; Z86.73 Personal history of transient ischemic attack (TIA), and cerebral infarction without residual deficits; Z79.01 Long term (current) use of anticoagulants; Z79.899 Other long term (current) drug therapy; Z79.82 Long term (current) use of aspirin
CPT/HCPCS: 36415; 70450; 80048; 80053; 83735; 85025; 87081; A9270